=== PATIENT | male | born 1930 | race Caucasian/White ===

== ENCOUNTER 2017-03-10 12:15 | Inpatient (IN) | payer MEDICARE, BC ==
[2017-03-10] VITALS (13 sets, daily range): BP systolic 105–154; BP diastolic 54–77; PULSE 49–68; RESP 16–30; TEMP 98–102.7; O2SAT 88–97
[~2017-03-10] VITALS: Ht 170.2 cm; Wt 81.0 kg
[~2017-03-10 12:15] MED LIST: ALBU17I INH; CARB OP; CART180C4 PO; CENTTAB9 PO; COUM5TAB PO; LEVA500T33 PO; LISI-591 PO; PRED10PA PO; ROSU10 PO; TIMO0.5S29 OP; TRAV0.00 BOTH EYES
[2017-03-10 12:42] LABS: AUTOMATED NEUTROPHIL # 13.4 TH/MM3 (1.8-7.7); BASOPHIL % 0.1 % (0.0-2.0); HEMATOCRIT 44.1 % (39.0-51.0); LYMPH % 4.5 % (9.0-44.0); LYMPHOCYTE # 0.7 TH/MM3 (1.0-4.8); MEAN CELL VOLUME 94.9 FL (80.0-100.0); MEAN CORPUSCULAR HEMOGLOBIN 31.7 PG (27.0-34.0); MEAN CORPUSCULAR HGB CONC 33.4 % (32.0-36.0); MONO % 9.6 % (0.0-8.0); NEUT % 85.8 % (16.0-70.0); PLATELET COUNT 193 TH/MM3 (150-450); RED BLOOD COUNT 4.65 MIL/MM3 (4.50-5.90); RED CELL DISTRIBUTION WIDTH 13.7 % (11.6-17.2); WHITE BLOOD COUNT 15.6 TH/MM3 (4.0-11.0)
[2017-03-10 12:45] LABS: HEMO FLAGS AUTO DIFF
[2017-03-10 12:52] LABS: CHLORIDE 105 MEQ/L (98-107); POTASSIUM 4.5 MEQ/L (3.5-5.1); SODIUM (NA) 139 MEQ/L (136-145)
[2017-03-10 12:56] LABS: ANION GAP 8 MEQ/L (5-15); BLOOD UREA NITROGEN 20 MG/DL (7-18)
[2017-03-10 12:57] LABS: APTT (PATIENT) 34.1 SEC (24.3-30.1); INTERNATIONAL NORMALIZED RATIO 1.9 RATIO; PROTHROMBIN TIME - PATIENT 21.1 SEC (9.8-11.6)
[2017-03-10 12:59] LABS: ALT (GPT) 25 U/L (12-78); AST (GOT) 27 U/L (15-37); GLOMERULAR FILTRATION RATE 63 ML/MIN (>89)
[2017-03-10] MEDS ORDERED: ERGO2000 PO (13:00)
[2017-03-10] MEDS ORDERED: CENTCHW4 CHEW (13:00)
[2017-03-10] MEDS ORDERED: TRAV0.00 EACH EYE (13:00)
[2017-03-10] MEDS ORDERED: LISI-591 PO (13:00)
[2017-03-10] MEDS ORDERED: ALEN35TA24 PO (13:00)
[2017-03-10] MEDS ORDERED: CALC950T2 PO (13:00)
[2017-03-10] MEDS ORDERED: COUM5TAB PO (13:00)
[2017-03-10] MEDS ORDERED: TIMO0.5S30 EACH EYE (13:00)
[2017-03-10] MEDS ORDERED: DILT240C36 PO (13:00)
[2017-03-10] MEDS ORDERED: COMB0.2S RIGHT EYE (13:00)
[2017-03-10] MEDS ORDERED: LUTE20CA PO (13:00)
[2017-03-10] MEDS ORDERED: CART120C PO (13:00)
[2017-03-10] MEDS ORDERED: ROSU10 PO (13:00)
[2017-03-10] MEDS ORDERED: ZEAX5POW PO (13:00)
[2017-03-10 13:01] LABS: TOTAL BILIRUBIN ADULT 1.2 MG/DL (0.2-1.0)
[2017-03-10 13:02] LABS: ALKALINE PHOSPHATASE 47 U/L (45-117)
[2017-03-10 13:04] LABS: BANDS 16 % (0-6); NEUTROPHIL # MANUAL DIFF 13.4 TH/MM3 (1.8-7.7); PLATELET ESTIMATE SMEAR NORMAL (NORMAL); PLATELET MORPHOLOGY NORMAL (NORMAL); POLYS (SEG NEUTROPHILS) 70 % (16-70); SCAN/DIFF FINAL DIFF MANUAL; WBC DIFF SAMPLE 100
--- NOTE | 2017-03-10 13:13 | PD ---
HPI Chief Complaint: Respiratory Symptoms Time Seen by Provider: 12:24 Travel History International Travel<30 days: No Contact w/Intl Traveler<30days: No Traveled to known affect area: No History of Present Illness HPI 86-year-old male reports fever for about 1 day or so. He became short of breath today. His notes an occasional cough over the past day and a half or so. To me the patient denies orthopnea and dyspnea on exertion. He also denies chest pain and shortness of breath although he is conversationally dyspneic at the time of our interview. 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) Glaucoma: Yes Hepatitis: No Hiatal Hernia: No Hypertension: Yes Medical other: Yes (PROSTATE CA HISTORY, ) Psychiatric: No Respiratory: No Myocardial Infarction: No Radiation Therapy: Yes (OCT 1996 SEED IMPLANTS) Thyroid Disease: No Past Surgical History Cardiac Surgery: Yes (CARDIAC STENTS LAD) Coronary Stent: Yes (X 1 PLACED IN LAD) Eye Surgery: Yes (BILAT CATARACTS) Genitourinary Surgery: Yes (PROSTATE SURGERY FOR SEED IMPLANTS) Oral Surgery: Yes (TONSILLECTOMY) Tonsillectomy: Yes Other Surgery: Yes (R KNEE SCREWS/WIRE INSERTED) Social History Alcohol Use: Yes (4-5 BEERS/WINE DAILY) Tobacco Use: No Substance Use: No Allergies-Medications (Allergen,Severity, Reaction): Coded Allergies: Aspirin (Verified Allergy, Severe, RASH, 03/10/17) PT UNSURE IF ALLERGIC Naprosyn (Verified Allergy, Severe, RASK, 03/10/17) Reported Meds & Prescriptions Reported Meds & Active Scripts Active Reported Zeaxanthin (Zeaxanthin (Bulk)) 1 Pow Pow 25 Mg PO DAILY Lutein 20 Mg Cap 20 Mg PO DAILY Calcitrate (Calcium Citrate) 950 Mg Tab 1,250 Mg PO DAILY Vitamin D2 (Ergocalciferol) 2,000 Unit Tab 2,000 Units PO DAILY Centrum (Multiple Vitamins W/ Minerals) 1 Chew 1 Tab CHEW DAILY Alendronate (Alendronate Sodium) 35 Mg Tab 70 Mg PO Q7D Combigan Opth Drops (Brimonidine-Timolol Opth Drops) 0.2-0.5% Soln 1 Drop RIGHT EYE Q12HR Travatan Z Opth Drops (Travoprost) 0.004 % Soln 1 Drop EACH EYE HS Timolol Opth Drops 0.5 % Soln 1 Drop EACH EYE DAILY Cartia Xt (Diltiazem ER 24 HR) 120 Mg Caper 240 Mg PO DAILY Zestril (Lisinopril) 20 Mg Tab 20 Mg PO DAILY Crestor (Rosuvastatin Calcium) 10 Mg Tab 10 Mg PO DAILY Coumadin (Warfarin) 5 Mg Tab 5 Mg PO DAILY Review of Systems Except as stated in HPI: all other systems reviewed are Neg General / Constitutional: Positive: Fever, Chills Cardiovascular: No: Chest Pain or Discomfort, Palpitations Respiratory: No: Cough, Shortness of Breath Physical Exam Narrative GENERAL: Well-nourished or gallop 86-year-old male mild respiratory distress SKIN: Focused skin assessment warm/dry. HEAD: Atraumatic. Normocephalic. EYES: Pupils equal and round. No scleral icterus. No injection or drainage. ENT: No nasal bleeding or discharge. Mucous membranes pink and moist. NECK: Trachea midline. No JVD. CARDIOVASCULAR: Irregular. Between 50 and 60. RESPIRATORY: Tachypnea. Diminished lung sounds in the bases. GASTROINTESTINAL: Abdomen soft, non-tender, nondistended. Hepatic and splenic margins not palpable. MUSCULOSKELETAL: No obvious deformities. No clubbing. No cyanosis. No edema. NEUROLOGICAL: Awake and alert. No obvious cranial nerve deficits. Motor grossly within normal limits. Normal speech. PSYCHIATRIC: Appropriate mood and affect; insight and judgment normal. Data Data Last Documented VS Vital Signs Date Time Temp Pulse Resp B/P Pulse Ox O2 Delivery O2 Flow Rate FiO2 03/10/17 13:25 49 16 116/69 94 Nasal Cannula 2 03/10/17 12:45 98.5 Vital signs reviewed Orders Complete Blood Count With Diff (03/10/17 12:21) Comprehensive Metabolic Panel (03/10/17 12:21) Lactic Acid Sepsis Protocol (03/10/17 12:21) Blood Culture (03/10/17 12:21) Iv Access Insert/Monitor (03/10/17 12:21) Oxygen Administration (03/10/17 12:21) Oximetry (03/10/17 12:21) Act Partial Throm Time (Ptt) (03/10/17 12:21) Prothrombin Time / Inr (Pt) (03/10/17 12:21) B-Type Natriuretic Peptide (03/10/17 12:21) Chest, Single Ap (03/10/17 ) Electrocardiogram (03/10/17 ) Troponin I (03/10/17 12:33) Furosemide Inj (Lasix Inj) (03/10/17 13:15) Nitroglycerin 2% Oint (Nitroglycerin 2% (03/10/17 13:15) Ceftriaxone Inj (Rocephin Inj) (03/10/17 13:15) Azithromycin (Zithromax) (03/10/17 13:15) Admit Order (Ed Use Only) (03/10/17 13:54) Labs Laboratory Tests Test 03/10/17 12:25 White Blood Count 15.6 TH/MM3 Red Blood Count 4.65 MIL/MM3 Hemoglobin 14.8 GM/DL Hematocrit 44.1 % Mean Corpuscular Volume 94.9 FL Mean Corpuscular Hemoglobin 31.7 PG Mean Corpuscular Hemoglobin 33.4 % Concent Red Cell Distribution Width 13.7 % Platelet Count 193 TH/MM3 Mean Platelet Volume 8.1 FL Neutrophils (%) (Auto) 85.8 % Lymphocytes (%) (Auto) 4.5 % Monocytes (%) (Auto) 9.6 % Eosinophils (%) (Auto) 0.0 % Basophils (%) (Auto) 0.1 % Neutrophils # (Auto) 13.4 TH/MM3 Lymphocytes # (Auto) 0.7 TH/MM3 Monocytes # (Auto) 1.5 TH/MM3 Eosinophils # (Auto) 0.0 TH/MM3 Basophils # (Auto) 0.0 TH/MM3 CBC Comment AUTO DIFF Differential Total Cells 100 Counted Neutrophils % (Manual) 70 % Band Neutrophils % 16 % Lymphocytes % 4 % Monocytes % 10 % Neutrophils # (Manual) 13.4 TH/MM3 Differential Comment FINAL DIFF MANUAL Platelet Estimate NORMAL Platelet Morphology Comment NORMAL Red Cell Morphology Comment NORMAL Prothrombin Time 21.1 SEC Prothromb Time International 1.9 RATIO Ratio Activated Partial 34.1 SEC Thromboplast Time Sodium Level 139 MEQ/L Potassium Level 4.5 MEQ/L Chloride Level 105 MEQ/L Carbon Dioxide Level 26.0 MEQ/L Anion Gap 8 MEQ/L Blood Urea Nitrogen 20 MG/DL Creatinine 1.10 MG/DL Estimat Glomerular Filtration 63 ML/MIN Rate Random Glucose 126 MG/DL Lactic Acid Level 3.2 mmol/L Calcium Level 8.4 MG/DL Total Bilirubin 1.2 MG/DL Aspartate Amino Transf 27 U/L (AST/SGOT) Alanine Aminotransferase 25 U/L (ALT/SGPT) Alkaline Phosphatase 47 U/L Troponin I 0.16 NG/ML B-Type Natriuretic Peptide 1078 PG/ML Total Protein 6.8 GM/DL Albumin 3.2 GM/DL MDM Medical Decision Making Medical Screen Exam Complete: Yes Emergency Medical Condition: Yes Medical Record Reviewed: Yes Differential Diagnosis Pneumonia, CHF, coronary ischemia, anemia, renal failure, sepsis Narrative Course CBC & BMP Diagram 03/10/17 12:25 LFTs normal BNP 1078 Tn 0.16 LA 3.2 INR 1.9 EKG: rate 55, ST changes in precordial leads appears stable compared to 4 years prior CHF: lasix 40mg IV given, nitropaste applied PNA: Rocephin, Azithro, blood cultures O2 sat approx 90-95% on 2L NC d/w Dr Klein for [facility]. Diagnosis Primary Impression: CHF exacerbation Qualified Code: I50.9 - Acute on chronic congestive heart failure, unspecified congestive heart failure type Additional Impressions: Sepsis Qualified Code: A41.9 - Sepsis, due to unspecified organism PNA (pneumonia) Qualified Code: J18.9 - Pneumonia of both lower lobes due to infectious organism Admitting Information Admitting Physician Requests: Admit Dixon Johnson MD March 10, 2017 13:13
[2017-03-10] MEDS ORDERED: FUROSEMIDE 40 MG/4 ML VIAL IV PUSH ONE (13:15)
[2017-03-10] MEDS ORDERED: NITROGLYCERIN 2% OINT 1 GM PACKET TOP ONE (13:15)
[2017-03-10] MEDS ORDERED: AZITHROMYCIN 250 MG TAB PO ONE (13:15)
[2017-03-10] MEDS ORDERED: cefTRIAXone INJ 1,000 MG in SODIUM CHLORIDE 0.9% INJ 100 ML IV ONE (13:15)
--- NOTE | 2017-03-10 13:45 | RADHPO ---
EXAM DATE/TIME: 03/10/2017 13:29 [place] COMPARISON: No previous studies available for comparison. INDICATIONS : Shortness of breath. MEDICAL HISTORY : Cardiovascular disease. SURGICAL HISTORY : Carotid stent. ten years ago ENCOUNTER: Initial ACUITY: 1 day PAIN SCORE: 0/10 LOCATION: FINDINGS: Portable AP view of the chest demonstrates cardiac silhouette size is the upper limits for normal mo cification of the aorta. There are perihilar and lower lung zone interstitial and air space opacities . No pneumothorax or pleural effusion is seen. Bones and soft tissues demonstrate no acute finding. CONCLUSION: Perihilar and lower lungs interstitial opacities may represent pulmonary edema in the appropriate cli nical setting. Raphael Messina MD on March 10, 2017 at 13:42 Board Certified Radiologist. This report was verified electronically.
[2017-03-10] MEDS ORDERED: BISACODYL 10 MG SUPP RECTAL PRN (14:30)
[2017-03-10] MEDS ORDERED: AZITHROMYCIN INJ 500 MG in SODIUM CHLOR 0.9% 250 ML INJ 250 ML IV SCH (14:30)
[2017-03-10] MEDS ORDERED: SENNOSIDES 8.6 MG TAB PO PRN (14:30)
[2017-03-10] MEDS ORDERED: NALOXONE HCL 0.4 MG/ML AMP IV PRN (14:30)
[2017-03-10] MEDS ORDERED: LACTULOSE SYRUP 20 GM/30 ML CUP PO PRN (14:30)
[2017-03-10] MEDS ORDERED: ONDANSETRON HCL 4 MG/2 ML VIAL IVP PRN (14:30)
[2017-03-10] MEDS ORDERED: SODIUM CHLORIDE 0.9% FLUSH 10 ML FLUSH IV FLUSH PRN (14:30)
[2017-03-10] MEDS ORDERED: ACETAMINOPHEN 325 MG TAB PO PRN (14:30)
[2017-03-10] MEDS ORDERED: MAGNESIUM HYDROXIDE SUSP 30 ML CUP PO PRN (14:30)
[2017-03-10 14:31] LABS: LACTIC ACID GHOST NOT REPORTABLE
[2017-03-10] MEDS ORDERED: RESP: ALBUTEROL 2.5 MG/IPRATROPIUM 0.5 MG NEB (SCH) INH ONE (15:30)
[2017-03-10] MEDS: HEPARIN SODIUM - SQ 10,000 UNITS/ML VIAL SQ SCH (15:37)
[2017-03-10] MEDS ORDERED: ALENDRONATE 70 MG PO SCH (19:00)
[2017-03-10] MEDS ORDERED: ZEAXANTHIN PO SCH (19:00)
[2017-03-10] MEDS ORDERED: NON-FORMULARY DRUG (Lutein 20 MG) PO SCH (19:00)
--- NOTE | 2017-03-10 19:24 | MH ---
cc: RONALD TREJO MD DATE OF ADMISSION: 03/10/2017 CHIEF COMPLAINT: Cough, shortness of breath. HISTORY OF PRESENT ILLNESS: This is an 86-year-old male with past medical-surgical history significant for atrial fibrillation, left bundle branch block, history of prostate cancer status post seed implant, hyperlipidemia, coronary artery disease, hearing problem, hypertension, history of glaucoma, history of cardiac stent placement, bilateral cataract surgery, prostate surgery for seed implant, tonsillectomy, right knee surgery. He is a binge drinker and drinks four to five beers or wine a day. He came to [facility] complaining of shortness of breath for one day. The notes a cough over the past days. The patient denies any orthopnea or any dyspnea on exertion. Denies any chest pain. When he talks, he feels short of breath. At the time, other than that, he denies any nausea or vomiting, diarrhea, constipation. Denies any blood in the stool or black stool. Denies any burning on urination. He denies any hematochezia. Denies any neurological symptoms. Denies any other complaint. Other than that, nothing significant. PAST MEDICAL HISTORY / PAST SURGICAL HISTORY: Past medical-surgical history as dictated above. SOCIAL HISTORY: He drinks four to five beers or wine a day. He denies any tobacco abuse. He lives at home with his . He retired many years ago. FAMILY HISTORY: Nothing significant. ALLERGIES: 1. ASPIRIN. 2. NAPROXEN. MEDICATIONS: 1. Zeaxanthin 25 milligrams p.o. daily. 2. Lutein 20 milligrams p.o. daily. 3. Calcium citrate 1250 milligrams p.o. daily. 4. Vitamin D 2000 units p.o. daily. 5. Centrum multivitamin p.o. daily. 6. Alendronate 35 milligrams p.o. q. 7 days. 7. Combigan ophthalmic drops one drop right eye q. 12 hours. 8. Travatan ophthalmic drops 0.004% solution one drop each eye at bedtime. 9. Timolol ophthalmic drops 0.5% solution one drop each eye daily. 10. Cartia XT 40 milligrams p.o. daily. 11. Zestril 20 milligrams p.o. daily. 12. Crestor 10 milligrams p.o. daily. 13. Coumadin 5 milligrams p.o. daily. REVIEW OF SYSTEMS: Positive for mild shortness of breath. All other review of systems negative. PHYSICAL EXAMINATION: GENERAL: On physical exam, this is an 86-year-old male sitting on the bed not in acute distress. VITAL SIGNS: Temperature 99.3, heart rate 54, respirations 20, blood pressure 112/54, 02 saturation 94% on two liters nasal cannula. HEAD, EYES, EARS, NOSE, THROAT: Normocephalic and atraumatic. Extraocular muscles intact. Pupils equal, round and reactive to light and accommodation. Oral mucosa moist. NECK: The neck is supple. No visible thyromegaly or neck mass. Trachea is central. CARDIOVASCULAR: Regular rate and rhythm. RESPIRATORY: Clear to auscultation bilaterally. ABDOMEN: Abdomen soft and nontender. Bowel sounds audible. EXTREMITIES: No cyanosis or clubbing. Full range of motion of all extremities. NEUROLOGIC: Awake, alert and oriented times four. No focal deficits. SKIN: Warm and dry. PSYCHIATRIC: The patient is cooperative. Mood and affect are normal. LABORATORY DATA CBC totally unremarkable except for WBC count 15.6 high, neutrophils 85.8 high, lymphocytes 4.5 low, monos 9.6 high. Basic metabolic profile is totally unremarkable except for BUN 20 high, GFR 63 low, glucose 126 high, lactic acid level was 3.2 now it is 2.3, calcium 8.4 low, total protein 1.2 high. AST, ALT and alkaline phosphatase are normal. Troponin I is 0.16 high. Pro-BNP is 1078 high. Total protein 68, albumin 3.2. PT 21.1, INR 1.9, APTT 34.1. Blood cultures x2 done are negative so far. IMAGING STUDIES: Chest x-ray done shows perihilar and lower lung interstitial opacity may represent pulmonary edema in the appropriate clinical setting. ASSESSMENT AND PLAN: 1. This is an 86-year-old male who came to the emergency room diagnosed with shortness of breath secondary to CHF exacerbation, most likely acute on chronic systolic heart failure. The patient had a pro-BNP. I will start the patient on Lasix 50 milligrams IV daily. I will consult cardiology. Strict intakes and outputs and daily weights, fluid restriction to 1.5 liters a day, salt restriction to 2 grams a day, daily weights. Will monitor the patient's progress. 2. History of glaucoma. Continue home medication. 3. Vitamin D deficiency. Continue home medications. 4. History of hypertension. Continue medications. 5. History of hyperlipidemia. Continue with Crestor 10 milligrams p.o. daily. 6. History of atrial fibrillation. Continue with Coumadin. INR 1.9. We will monitor PT and INR daily. 7. History of osteopenia. Continue home medications. 8. DVT prophylaxis. Coumadin. 9. GI prophylaxis. Protonix 40 milligrams p.o. daily. We are going to manage the patient on a daily basis and make recommendations on a daily basis. Ronald Trejo MD EA/[facility] /6:51 PM /7:10 PM
[2017-03-10] MEDS: FUROSEMIDE 40 MG/4 ML VIAL IV PUSH SCH (19:32)
[2017-03-10] MEDS ORDERED: DO NOT ADM ANY ANTICOAGULANT DRUGS OTHER PRN (19:45)
[2017-03-10] MEDS ORDERED: NON-FORMULARY DRUG (Brimonidine-Timolol Opth Drops (Combigan Opth Drops) 1 DROP) RIGHT EYE SCH (21:00)
[2017-03-10] MEDS: LATANOPROST 0.005% OPHT SOLN 2.5 ML BTL EACH EYE SCH (21:00)
[2017-03-10] MEDS: RESP: ALBUTEROL 2.5 MG/IPRATROPIUM 0.5 MG NEB (SCH) NEB (21:12)
[2017-03-10] MEDS: SODIUM CHLORIDE 0.9% FLUSH 10 ML FLUSH IV FLUSH SCH (21:28)
[2017-03-10] MEDS: DOCUSATE SODIUM 50 MG/SENNA 8.6 MG TAB PO SCH (21:28)
[2017-03-10] MEDS: TIMOLOL MALEATE 0.5% OPHT SOLN 5 ML BTL RIGHT EYE SCH (22:00)
[2017-03-10] MEDS: BRIMONIDINE TARTRATE 0.2% OPHT SOLN 5 ML BTL RIGHT EYE SCH (22:00)
[2017-03-11] VITALS (20 sets, daily range): BP systolic 101–122; BP diastolic 46–62; PULSE 53–69; RESP 18–37; TEMP 97.9–99.4; O2SAT 93–98
[2017-03-11] MEDS: RESP: ALBUTEROL 2.5 MG/IPRATROPIUM 0.5 MG NEB (SCH) NEB ×4 (03:23→21:07)
[2017-03-11] MEDS: HEPARIN SODIUM - SQ 10,000 UNITS/ML VIAL SQ SCH (04:00)
[2017-03-11 04:51] LABS: AUTOMATED NEUTROPHIL # 8.3 TH/MM3 (1.8-7.7); BASOPHIL # 0.3 TH/MM3 (0-0.2); BASOPHIL % 2.6 % (0.0-2.0); EOSINOPHIL % 0.1 % (0.0-4.0); HEMATOCRIT 43.6 % (39.0-51.0); LYMPH % 7.4 % (9.0-44.0); LYMPHOCYTE # 0.8 TH/MM3 (1.0-4.8); MEAN CORPUSCULAR HGB CONC 33.7 % (32.0-36.0); MONO % 9.2 % (0.0-8.0); NEUT % 80.7 % (16.0-70.0); PLATELET COUNT 188 TH/MM3 (150-450); RED BLOOD COUNT 4.59 MIL/MM3 (4.50-5.90); RED CELL DISTRIBUTION WIDTH 13.4 % (11.6-17.2); WHITE BLOOD COUNT 10.3 TH/MM3 (4.0-11.0)
[2017-03-11 04:52] LABS: HEMO FLAGS DIFF FINAL
[2017-03-11 05:11] LABS: CHLORIDE 102 MEQ/L (98-107); POTASSIUM 3.9 MEQ/L (3.5-5.1); SODIUM (NA) 139 MEQ/L (136-145)
[2017-03-11 05:15] LABS: ANION GAP 7 MEQ/L (5-15)
[2017-03-11 05:16] LABS: BLOOD UREA NITROGEN 21 MG/DL (7-18)
[2017-03-11 05:18] LABS: ALT (GPT) 23 U/L (12-78)
[2017-03-11 05:19] LABS: AST (GOT) 34 U/L (15-37); GLOMERULAR FILTRATION RATE 86 ML/MIN (>89)
[2017-03-11 05:20] LABS: TOTAL BILIRUBIN ADULT 1.2 MG/DL (0.2-1.0)
[2017-03-11 05:21] LABS: ALKALINE PHOSPHATASE 77 U/L (45-117)
[2017-03-11 06:37] LABS: INTERNATIONAL NORMALIZED RATIO 1.4 RATIO; PROTHROMBIN TIME - PATIENT 15.4 SEC (9.8-11.6)
--- NOTE | 2017-03-11 08:25 | HHI.PR ---
Subjective History of Present Illness Patient Shortness of breath better d/w LOGISTICS TECHNICIANATIF Wilson no acute issue. Leukocytosis resolved Low INR Increase coumadin to 4 mg PO Daily. Patient will be transferred to [facility] for possible cardiac cath. Review of Systems Constitutional Constitutional: Fatigue, Weakness Pulmonary Respiratory: Shortness of Breath Vitals/Results Intake & Output 03/10/17 03/10/17 03/11/17 15:00 23:00 07:00 Intake Total 100 ml 500 ml 120 ml Output Total 150 ml 650 ml 300 ml Balance -50 ml -150 ml -180 ml Intake Oral 500 ml 120 ml IV Total 100 ml Output Urine Total 150 ml 650 ml 300 ml # Voids 2 1 Vital Signs Vital Signs Date Time Temp Pulse Resp B/P Pulse Ox O2 Delivery O2 Flow Rate FiO2 03/11/17 06:00 53 03/11/17 04:14 96 Nasal Cannula 3.00 03/11/17 04:00 56 03/11/17 03:00 62 35 122/62 96 03/11/17 02:00 65 03/11/17 01:07 98 35 03/11/17 00:00 67 03/10/17 23:00 98.0 64 29 113/59 97 03/10/17 22:05 97 35 03/10/17 22:00 98.4 03/10/17 22:00 65 03/10/17 20:00 66 03/10/17 20:00 102.7 66 28 120/66 96 03/10/17 19:15 95 40 03/10/17 17:53 54 24 112/54 94 Nasal Cannula 2 03/10/17 16:26 58 24 105/59 94 Nasal Cannula 2 03/10/17 15:40 68 28 120/59 94 Nasal Cannula 2 03/10/17 15:22 95 Nasal Cannula 2.00 03/10/17 14:37 99.3 66 30 126/59 93 Nasal Cannula 2 03/10/17 14:12 62 30 136/77 93 Nasal Cannula 2 03/10/17 13:25 49 16 116/69 94 Nasal Cannula 2 03/10/17 12:45 30 95 Nasal Cannula 2 03/10/17 12:45 98.5 58 30 154/74 88 03/10/17 12:45 95 Nasal Cannula 2 03/10/17 12:35 96 Nasal Cannula 2 CBC/BMP: 03/11/17 0435 03/11/17 0435 Lab Results Laboratory Tests Test 03/10/17 03/10/17 03/10/17 03/11/17 12:25 14:50 19:11 00:30 White Blood Count 15.6 TH/MM3 Red Blood Count 4.65 MIL/MM3 Hemoglobin 14.8 GM/DL Hematocrit 44.1 % Mean Corpuscular Volume 94.9 FL Mean Corpuscular Hemoglobin 31.7 PG Mean Corpuscular Hemoglobin 33.4 % Concent Red Cell Distribution Width 13.7 % Platelet Count 193 TH/MM3 Mean Platelet Volume 8.1 FL Neutrophils (%) (Auto) 85.8 % Lymphocytes (%) (Auto) 4.5 % Monocytes (%) (Auto) 9.6 % Eosinophils (%) (Auto) 0.0 % Basophils (%) (Auto) 0.1 % Neutrophils # (Auto) 13.4 TH/MM3 Lymphocytes # (Auto) 0.7 TH/MM3 Monocytes # (Auto) 1.5 TH/MM3 Eosinophils # (Auto) 0.0 TH/MM3 Basophils # (Auto) 0.0 TH/MM3 CBC Comment AUTO DIFF Differential Total Cells 100 Counted Neutrophils % (Manual) 70 % Band Neutrophils % 16 % Lymphocytes % 4 % Monocytes % 10 % Neutrophils # (Manual) 13.4 TH/MM3 Differential Comment FINAL DIFF MANUAL Platelet Estimate NORMAL Platelet Morphology Comment NORMAL Red Cell Morphology Comment NORMAL Prothrombin Time 21.1 SEC Prothromb Time International 1.9 RATIO Ratio Activated Partial 34.1 SEC Thromboplast Time Sodium Level 139 MEQ/L Potassium Level 4.5 MEQ/L Chloride Level 105 MEQ/L Carbon Dioxide Level 26.0 MEQ/L Anion Gap 8 MEQ/L Blood Urea Nitrogen 20 MG/DL Creatinine 1.10 MG/DL Estimat Glomerular Filtration 63 ML/MIN Rate Random Glucose 126 MG/DL Lactic Acid Level 3.2 mmol/L 2.3 mmol/L Calcium Level 8.4 MG/DL Total Bilirubin 1.2 MG/DL Aspartate Amino Transf 27 U/L (AST/SGOT) Alanine Aminotransferase 25 U/L (ALT/SGPT) Alkaline Phosphatase 47 U/L Troponin I 0.16 NG/ML 0.16 NG/ML 0.14 NG/ML B-Type Natriuretic Peptide 1078 PG/ML Total Protein 6.8 GM/DL Albumin 3.2 GM/DL Test 03/11/17 04:35 White Blood Count 10.3 TH/MM3 Red Blood Count 4.59 MIL/MM3 Hemoglobin 14.7 GM/DL Hematocrit 43.6 % Mean Corpuscular Volume 95.0 FL Mean Corpuscular Hemoglobin 32.0 PG Mean Corpuscular Hemoglobin 33.7 % Concent Red Cell Distribution Width 13.4 % Platelet Count 188 TH/MM3 Mean Platelet Volume 8.0 FL Neutrophils (%) (Auto) 80.7 % Lymphocytes (%) (Auto) 7.4 % Monocytes (%) (Auto) 9.2 % Eosinophils (%) (Auto) 0.1 % Basophils (%) (Auto) 2.6 % Neutrophils # (Auto) 8.3 TH/MM3 Lymphocytes # (Auto) 0.8 TH/MM3 Monocytes # (Auto) 0.9 TH/MM3 Eosinophils # (Auto) 0.0 TH/MM3 Basophils # (Auto) 0.3 TH/MM3 CBC Comment DIFF FINAL Differential Comment Prothrombin Time 15.4 SEC Prothromb Time International 1.4 RATIO Ratio Sodium Level 139 MEQ/L Potassium Level 3.9 MEQ/L Chloride Level 102 MEQ/L Carbon Dioxide Level 30.0 MEQ/L Anion Gap 7 MEQ/L Blood Urea Nitrogen 21 MG/DL Creatinine 0.84 MG/DL Estimat Glomerular Filtration 86 ML/MIN Rate Random Glucose 95 MG/DL Calcium Level 8.3 MG/DL Total Bilirubin 1.2 MG/DL Aspartate Amino Transf 34 U/L (AST/SGOT) Alanine Aminotransferase 23 U/L (ALT/SGPT) Alkaline Phosphatase 77 U/L Total Protein 6.6 GM/DL Albumin 3.0 GM/DL Microbiology Microbiology 03/10/17 Aerobic Blood Culture, Received Pending 03/10/17 Anaerobic Blood Culture, Received Pending 03/10/17 Aerobic Blood Culture, Received Pending 03/10/17 Anaerobic Blood Culture, Received Pending Physical Exam General General Appearance: Well Developed, Well Nourished, No Acute Distress, Comfortable Eyes Eye Exam: Pupils Equal, Pupils Reactive, Sclera White, Extraocular Movement Intact Throat Throat Exam: Oral Mucosa [place] & Moist, Oral Pharynx Normal Neck Neck Exam: Neck Supple, Trachea Midline Pulmonary Resp Exam: Decreased Bases, Diminished Breath Sounds Resp Remarks Bilateral mild crackle and wheezing. Gastrointestinal/Abdomen GI Exam: Soft, Non-Tender, Bowel Sounds Present Musculoskeletal MS Exam: Normal Tone Integumentary Skin Exam: Clear, Warm, Dry, Intact Neurologic Neuro Exam: Alert, Awake, Oriented, Speech Clear, Moving All Extremities, No Focal Deficits Psychiatric Psych Exam: Appropriate Responses VTE Prophylaxis VTE Prophylaxis Meds: Heparin PUD Prophylasis PUD Prophylaxis: Protonix Assessment/Plan Assessment/Plan ASSESSMENT AND PLAN: 1. This is an 86-year-old male who came to the emergency room diagnosed with shortness of breath secondary to CHF exacerbation, most likely acute on chronic systolic heart failure. The patient had a pro-BNP. patient on Lasix 40 milligrams IV daily. cardiology consulted.. Strict intakes and outputs and daily weights, fluid restriction to 1.5 liters a day, salt restriction to 2 grams a day, daily weights. Will monitor the patient's progress...improving possible cardiac cath soon. 2. History of glaucoma. Continue home medication. 3. Vitamin D deficiency. Continue home medications. 4. History of hypertension. Continue medications. 5. History of hyperlipidemia. Continue with Crestor 10 milligrams p.o. daily. 6. History of atrial fibrillation. Continue with Coumadin. INR 1.4. increase coumadin to 4 mg PO Daily.We will monitor PT and INR daily. 7. History of osteopenia. Continue home medications. 8. DVT prophylaxis. Coumadin. 9. GI prophylaxis. Protonix 40 milligrams p.o. daily. 10 Possible sepsis on admission on Antibiotic 11. High Troponin...cardiology on board cardiac cath soon. We are going to manage the patient on a daily basis and make recommendations on a daily basis. Discussed Condition with: Patient Ronald Tovar MD March 11, 2017 08:25
--- NOTE | 2017-03-11 08:30 | EKG ---
Date Performed: 03/10/2017 Time Performed: 12:20:12 PTAGE: 86 years EKG: Possible sinus bradycardia Left bundle branch block Abnormal ECG PREVIOUS TRACING : 10/29/2012 11.49 Compared to previous tracing, heart rate has slowed. DOCTOR: David Khan Interpretating Date/Time 03/11/2017 08:30:19
[2017-03-11] MEDS ORDERED: TIMOLOL MALEATE 0.5% OPHT SOLN 5 ML BTL EACH EYE SCH (09:00)
[2017-03-11] MEDS: BRIMONIDINE TARTRATE 0.2% OPHT SOLN 5 ML BTL RIGHT EYE SCH ×2 (09:46→21:00)
[2017-03-11] MEDS: SODIUM CHLORIDE 0.9% FLUSH 10 ML FLUSH IV FLUSH SCH ×2 (09:46→21:00)
[2017-03-11] MEDS: TIMOLOL MALEATE 0.5% OPHT SOLN 5 ML BTL RIGHT EYE SCH ×2 (09:46→21:00)
[2017-03-11] MEDS: CHOLECALCIFEROL (VIT D3) 1000 UNIT TAB PO SCH (09:47)
[2017-03-11] MEDS: FUROSEMIDE 40 MG/4 ML VIAL IV PUSH SCH (09:48)
[2017-03-11] MEDS: DILTIAZEM-CD 120 MG CAP ER PO SCH (09:50)
[2017-03-11] MEDS: LISINOPRIL 20 MG TAB PO SCH (09:50)
[2017-03-11] MEDS: DOCUSATE SODIUM 50 MG/SENNA 8.6 MG TAB PO SCH ×2 (09:50→21:40)
[2017-03-11] MEDS: ATORVASTATIN 20 MG TAB PO SCH (09:51)
[2017-03-11] MEDS: CALCIUM CARBONATE 1.25 GM (CA 500 MG) TAB PO SCH (09:51)
[2017-03-11] MEDS: MULTIVITAMINS/MINERALS THERAPEUTIC TAB PO SCH (09:51)
--- NOTE | 2017-03-11 12:53 | EC ---
Study Study Date:03/11/2017 STUDY CONCLUSIONS SUMMARY - Procedure narrative: Image quality was poor. The study was technically limited due to poor acoustic window availability. - Left ventricle: The cavity size was normal. Systolic function was probably normal. In limited views, the estimated ejection fraction was in the range of 50% to 55%, although difficult to determine with the technically difficult images. The study is not technically sufficient to allow evaluation of LV diastolic function. - Aortic valve: There was mild stenosis. Valve area: 1.5cm^2 (Vmax). If LV function is below 40, please consider prescribing an ACEI or ARB or document rationale for non-use. PROCEDURE DATA STUDY STATUS: Elective. Procedure: Transthoracic echocardiography. Image quality was poor. The study was technically limited due to poor acoustic window availability. Scanning was performed from the parasternal, apical, and subcostal acoustic windows. Study completion: The patient tolerated the procedure well. Transthoracic echocardiography. M-mode, complete 2D, complete spectral Doppler, and color Doppler. Height: Height: 67in. Weight: Weight: 165.7lb. Body mass index: BMI: 26kg/m^2. Body surface area: BSA: 1.87m^2. Patient status: Inpatient. CARDIAC ANATOMY LEFT VENTRICLE: The cavity size was normal. Systolic function was probably normal. In limited views, the estimated ejection fraction was in the range of 50% to 55%, although difficult to determine with the technically difficult images. Images were inadequate for LV wall motion assessment. The study is not technically sufficient to allow evaluation of LV diastolic function. AORTIC VALVE: Probably trileaflet; mildly thickened leaflets. Doppler: There was mild stenosis. No significant regurgitation. Valve area: 1.5cm^2 (Vmax). Indexed valve area: 0.8cm^2/m^2 (Vmax). Mean gradient: 13mm Hg (S). Peak gradient: 16mm Hg (S). MITRAL VALVE: The valve appears to be grossly normal. Doppler: There was no evidence for stenosis. No significant regurgitation. RIGHT VENTRICLE: Not well visualized. PULMONIC VALVE: Not visualized. Doppler: There was no evidence for stenosis. Trace regurgitation. TRICUSPID VALVE: Not well visualized. Doppler: There was no evidence for stenosis. Trace regurgitation. Patient weight: 165.7lb _Ejection fraction:_ 65-75% _Fractional shortening:_ 32% up to 5Kg 5-11.5Kg 11.6-22.9Kg 23-45Kg 45-57Kg Aortic Root 7-13 <17 13-22 17-27 17-27 LA diam 6-13 <23 24-38 33-47 37-40 RVID 10-17 7-15 7-15 7-18 8-17 LVIDd 12-22 <32 24-38 33-47 37-40 LVPW 2-4 3-6 5-7 6-8 7-8 IVS 2-4 3-6 5-7 6-8 7-8 BASIC MEASUREMENTS ADULT NORMAL Left ventricle LV internal dimension, ED, chordal *26.5 mm 43-52 level, PLAX LV internal dimension, ES, chordal *21.3 mm 23-38 level, PLAX Fractional shortening, chordal level, *20 % >29 PLAX LV posterior wall thickness, ED 10.4 mm IVS/LVPW ratio, ED 0.96 <1.3 Ventricular septum Septal thickness, ED 10 mm Aortic valve Leaflet separation 19 mm 15-26 BASIC MEASUREMENTS ADULT NORMAL Aortic valve Leaflet separation 19 mm 15-26 Aorta Root diameter, ED 24 mm 20-37 Left atrium Anterior-posterior dimension, ES *50 mm 19-40 Anterior-posterior dimension index, ES *2.67 cm/m^2 <2.2 LA/aortic root ratio 2.08 DOPPLER MEASUREMENTS ADULT NORMAL Main pulmonary artery Pressure, S 16 mm Hg =30 Aortic valve Peak velocity, S 197 cm/s Mean velocity, S 173 cm/s VTI, S 44.3 cm Mean gradient, S 13 mm Hg Peak gradient, S 16 mm Hg Valve area, Vmax 1.5 cm^2 Valve area index, Vmax 0.8 cm^2/m^2 Tricuspid valve Regurgitant peak velocity 181 cm/s Peak RV-RA gradient, S 13 mm Hg Maximal regurgitant velocity 181 cm/s Systemic veins Estimated CVP 10 mm Hg Right ventricle RV pressure, S 23 mm Hg <30 Pulmonic valve Peak velocity, S 130 cm/s LEGEND: Mean values are shown as u=mean value. Asterisk (*) woods values outside specified normal range. Prepared and signed by Matheus Johnson [id number]
[2017-03-11] MEDS: cefTRIAXone INJ 1,000 MG in SODIUM CHLORIDE 0.9% INJ 100 ML IV SCH (15:17)
[2017-03-11] MEDS: AZITHROMYCIN INJ 500 MG in SODIUM CHLOR 0.9% 250 ML INJ 250 ML IV SCH (15:17)
[2017-03-11] MEDS ORDERED: HEPARIN SODIUM - IV 10,000 UNITS/10 ML VIAL IV PRN ×2 (15:45)
[2017-03-11] MEDS ORDERED: HEPARIN 25,000 UNITS-D5W 250 ML - PREMIX IV SCH (15:45)
[2017-03-11] MEDS ORDERED: WARFARIN SOD 4 MG TAB PO SCH (16:00)
[2017-03-11] MEDS ORDERED: WARFARIN SOD 2.5 MG TAB PO SCH (16:00)
[2017-03-11 17:03] LABS: HEMATOCRIT 44.8 % (39.0-51.0); MEAN CELL VOLUME 96.5 FL (80.0-100.0); MEAN CORPUSCULAR HEMOGLOBIN 32.1 PG (27.0-34.0); MEAN CORPUSCULAR HGB CONC 33.2 % (32.0-36.0); PLATELET COUNT 171 TH/MM3 (150-450); RED BLOOD COUNT 4.64 MIL/MM3 (4.50-5.90); RED CELL DISTRIBUTION WIDTH 14.1 % (11.6-17.2); REVIEW FLAG FINAL; WHITE BLOOD COUNT 8.8 TH/MM3 (4.0-11.0)
--- NOTE | 2017-03-11 17:16 | MB ---
cc: LAURENCE CASON M.D. DATE OF CONSULTATION: 03/11/2017 REASON FOR CONSULTATION: Jeffrey Cassidy, who is a very pleasant 78-year-old gentleman with history coronary disease/cath probably at least 5 years ago showed 50% proximal LAD lesion. He has a known left bundle branch block, atrial fibrillation, he is on coumadin. He presents with chief complaint of shortness of breath. His B-type natriuretic peptide is over a 1000. He was initially admitted to [address] [place] [address] Intensive care unit transfer to [place]. He is on a non-rebreather mask currently. He does not appear to be in distress. Denies any distress. Denies chest pain, fevers, chills, cough, bleeding, pain, orthopnea or syncope. PAST MEDICAL HISTORY: 1. As per history of present illness. 2. His history of prostate cancer status post seed placement. 3. Glaucoma. 4. Tonsillectomy. 5. Right knee surgery. SOCIAL HISTORY Drinks four or five beers or wine daily. Denies tobacco use. ALLERGIES ASPIRIN NAPROSYN MEDICATIONS PRIOR TO ADMISSION 1. <<1:10>> 2. Calcitrate 3. Vitamin D 2 4. Centrum 5. Alondranate. 6. <<1:17>> 7. Travatan. 8. Timolol 9. Cardia 120 daily. 10. Zestril 11. Crestor 12. Coumadin. MEDICATIONS IN THE HOSPITE: 1. Coumadin. 2. Ceftriaxone. 3. Azithromycin. 4. Diltiazem 240 daily. 6. Lisinopril 20 daily. 7. Multivitamins. 8. Calcium carbonate. 9. Atorvastatin 20 mg daily. 10. Albuterol. 11. Adaptogen 12. Timolol 13. Lasix 40 mg IV daily. 14. Heparin 5000 subcutaneously q 12 hours. PHYSICAL EXAMINATION: VITAL SIGNS: Blood pressure 111/055, pulse 66, sats are 95% on 3 liters nasal cannula. Last recorded prior to transfer temperature 99.4. GENERAL: He is alert and alert and oriented x3 in mild distress NECK: Supple. No JVD or bruit. CARDIOVASCULAR SYSTEM: S1, S2, no murmurs, rubs or gallops. LUNGS: Notable for decreased air movement at the bases. ABDOMEN: The abdomen is soft, nontender, nondistended with positive bowel sounds. EXTREMITIES: 1+ lower extremity edema. RADIOLOGIC: Chest x-ray shows perihilar and lower lung interstitial opacities may represent pulmonary edema in the appropriate clinical setting. Echocardiogram was read yesterday, shows ejection fraction of 50-55%, mitral valve area 1.5 cm2. Mean aortic valve gradient 13 mmHg. His EKG shows intermittent atrial rhythm with left bundle-branch block, rate of 55 beats per minute. LABORATORY DATA White count 15.6, hemoglobin 14.8, hematocrit 44.1, platelet count 193, sodium 139, potassium 3.9, chloride 102, bicarb 30, BUN 21, creatinine .84, total bilirubin is 1.2. Troponin is 0.16, 0.16 and 0.14, lactic acid is 2.3. BNP is 1,078, INR is 1.4. FINAL DIAGNOSIS 1. NonSTEMI. 2. Coronary disease. 3. Decompensated congestive heart failure 4. Elevated total bilirubin 5. Lactic acidosis. 6. Elevated white count 7. Chronic atrial fibrillation. 8. Alcohol abuse. 9. Hypoxia 10. Respiratory failure. DISCUSSION The patient's LV function is preserved with mild aortic valve stenosis gradient, given his history of the proximal mid 50% LAD lesion. This is very suspicious for ischemic etiology to not only the troponin elevation but also the decompensated heart failure. Obviously the patient has advanced age, explained the cannot rule out ischemic etiology without left heart catheterization and actually recommend left heart catheterization. The patient is undecided, he wishes to discuss this with his . In the meanwhile I have instructed the nurse to hold his coumadin. Start aspirin 81 mg daily, heparin drip per ACS protocol and keep n.p.o. after midnight. I will placed him on the cath schedule tomorrow if the patient consents, we will proceed left heart catheterization and right heart catheterization. MD ROSALINO Lan/kimberly /2:22 PM /5:03 PM
[2017-03-11 17:17] LABS: APTT (PATIENT) 32.7 SEC (24.3-30.1); INTERNATIONAL NORMALIZED RATIO 1.2 RATIO; PROTHROMBIN TIME - PATIENT 13.3 SEC (9.8-11.6)
--- NOTE | 2017-03-11 19:26 | MB ---
cc: MAURICIO HILLIARD DATE OF CONSULTATION 03/11/[address] Ronald Tovar REASON FOR CONSULTATION Pulmonary management. HISTORY OF PRESENT ILLNESS Mr. Cassidy is a pleasant 86-year-old male who has a history of coronary artery disease, atrial fibrillation, history of CA of the prostate status post seed implant. The patient came to the hospital with worsening of his shortness of breath going on for about one week or so, has cough and congestion, did not have fever or chills. No night sweats. No chest pain. The patient was initially admitted at [facility]. He had a workup done. His WBC count 8.8, hemoglobin 14.9, hematocrit 44.8, MCV 96, platelet count 171. His INR is 1.2. His troponin 0.16. Sodium is 139, potassium 3.9, chloride 102, CO2 30, BUN 21, creatinine 0.84. His chest x-ray shows perihilar and lower lung interstitial infiltrate, may be edema or infection. The patient was seen by Dr. Keshawn Anguiano and he is transferred to [facility] for cardiac catheterization. PAST MEDICAL HISTORY 1. History of atrial fibrillation 2. CA of the prostate status post radiation seed implant 3. Coronary artery disease, 4. Glaucoma, 5. Tonsillectomy, 6. Knee surgery. MEDICATIONS He is currently taking. 1. Heparin drip. 2. Rocephin 1 gram a day 3. Zithromax 500 mg a day 4. Diltiazem 240 mg a day 5. Lisinopril 20 mg a day. 6. Lipitor 20 mg a day. 7. Albuterol/Atrovent nebulizer treatment 8. Alphagan and Timoptic eye drops. 9. Xalatan eye drops. 10. Lasix 40 mg a day. ALLERGIES ASPIRIN NEOSPORIN SOCIAL HISTORY He is for 59 years. He has no history of smoking. Drinks four to six drinks every night. He is retired. FAMILY HISTORY He has four children, one with a heart problem. REVIEW OF SYSTEMS Normally he is up around and active. Weight is stable. No known COPD. No seizure, stroke or epilepsy. PHYSICAL EXAMINATION GENERAL: This is a well-nourished male [id number] not in acute distress. VITAL SIGNS: Blood pressure 108/57, heart rate 59, respiration 18, temperature 97.9 HEENT: Pupils are equal and reactive to light. Oral mucosa, nasal mucosa normal. NECK: Supple. JVP not raised. CHEST: She has bilateral expiratory rhonchi. CARDIOVASCULAR: S1, S2 normal. ABDOMEN: Benign. EXTREMITIES: No edema. IMPRESSION 1. Perihilar lung infiltrate possible pulmonary edema or early pneumonia. 2. Bronchospasm. He has no history of smoking or known COPD. 3. Reactive airway disease. 4. Non-ST [place] 5. Atrial fibrillation. 6. Hypertension. 7. History of CA of the prostate. PLAN Discussed patient is scheduled for cardiac catheterization tomorrow. I will start him on IV Solu-Medrol. Continue aerosol treatment. Supplement his oxygen. Continue present antibiotic Rocephin and Zithromax. Further treatment will depend on the course in the hospital. Thank you, Dr. Ronald Tovar, for this consultation. MD ADRIAN Ames/ /6:53 PM /7:10 PM
[2017-03-11] MEDS: LATANOPROST 0.005% OPHT SOLN 2.5 ML BTL EACH EYE SCH (21:00)
[2017-03-11] MEDS: methylPREDNISolone SOD SUCC 40 MG/1 ML VIAL IV PUSH SCH (21:40)
[2017-03-12] VITALS (23 sets, daily range): BP systolic 109–131; BP diastolic 60–69; PULSE 56–70; RESP 16–18; TEMP 98–98.5; O2SAT 95–97
[2017-03-12 00:53] LABS: APTT (PATIENT) 50.7 SEC (24.3-30.1)
[2017-03-12] MEDS: RESP: ALBUTEROL 2.5 MG/IPRATROPIUM 0.5 MG NEB (SCH) NEB ×4 (04:07→21:18)
[2017-03-12] MEDS: methylPREDNISolone SOD SUCC 40 MG/1 ML VIAL IV PUSH SCH ×3 (06:05→17:43)
[2017-03-12 06:47] LABS: APTT (PATIENT) 56.2 SEC (24.3-30.1); INTERNATIONAL NORMALIZED RATIO 1.1 RATIO; PROTHROMBIN TIME - PATIENT 12.7 SEC (9.8-11.6)
[2017-03-12] MEDS: TIMOLOL MALEATE 0.5% OPHT SOLN 5 ML BTL RIGHT EYE SCH ×2 (09:00→21:00)
[2017-03-12] MEDS: BRIMONIDINE TARTRATE 0.2% OPHT SOLN 5 ML BTL RIGHT EYE SCH ×2 (09:00→21:00)
[2017-03-12] MEDS: ATORVASTATIN 20 MG TAB PO SCH (09:28)
[2017-03-12] MEDS: FUROSEMIDE 40 MG/4 ML VIAL IV PUSH SCH (09:28)
[2017-03-12] MEDS: LISINOPRIL 20 MG TAB PO SCH (09:28)
[2017-03-12] MEDS: CHOLECALCIFEROL (VIT D3) 1000 UNIT TAB PO SCH (09:28)
[2017-03-12] MEDS: DILTIAZEM-CD 120 MG CAP ER PO SCH (09:29)
[2017-03-12] MEDS: CALCIUM CARBONATE 1.25 GM (CA 500 MG) TAB PO SCH (09:29)
[2017-03-12] MEDS: SODIUM CHLORIDE 0.9% FLUSH 10 ML FLUSH IV FLUSH SCH ×2 (09:29→21:00)
[2017-03-12] MEDS: MULTIVITAMINS/MINERALS THERAPEUTIC TAB PO SCH (09:29)
[2017-03-12] MEDS: DOCUSATE SODIUM 50 MG/SENNA 8.6 MG TAB PO SCH ×2 (09:29→21:00)
--- NOTE | 2017-03-12 11:36 | HHI.PR ---
Subjective Remarks Resting in bed Alert oriented Afebrile Heparin drip infusing patient denies any chest pain or shortness of breath in room Objective Objective Results - Vital Signs Date Time Temp Pulse Resp B/P Pulse Ox O2 Delivery O2 Flow Rate FiO2 03/12/17 10:32 95 Nasal Cannula 3.00 03/12/17 05:07 60 03/12/17 04:00 61 03/12/17 03:00 58 03/12/17 03:00 98.0 63 18 112/62 95 03/12/17 03:00 95 Nasal Cannula 4.00 35 03/12/17 02:00 60 03/12/17 01:02 62 03/12/17 00:00 62 03/11/17 23:00 95 Nasal Cannula 4.00 03/11/17 23:00 98.2 64 20 101/50 95 03/11/17 23:00 58 03/11/17 22:00 58 03/11/17 21:07 96 Nasal Cannula 3.00 03/11/17 21:00 62 03/11/17 20:00 66 03/11/17 19:00 99.3 68 18 101/46 97 03/11/17 19:00 68 03/11/17 18:08 95 Nasal Cannula 3.00 03/11/17 18:00 62 03/11/17 17:23 60 03/11/17 16:02 61 03/11/17 15:51 97.9 59 20 108/57 95 03/11/17 15:51 63 03/11/17 12:00 69 03/11/17 12:00 99.4 66 29 111/55 95 I/O 03/11/17 03/11/17 03/11/17 03/12/17 03/12/17 03/12/17 07:00 15:00 23:00 07:00 15:00 23:00 Intake Total 120 ml 360 ml 590 ml 350 ml Output Total 300 ml 200 ml Balance -180 ml 360 ml 590 ml 150 ml Intake Oral 120 ml 360 ml 240 ml 240 ml IV Total 350 ml 110 ml Output Urine Total 300 ml 200 ml # Voids 2 # Bowel Movements 0 Result Diagram: 03/11/17 1615 03/11/17 9715 ROS General: Fatigue (easily), Other (10 point ROS done positives noted other systems negative or unremarkable) Cardiac: Chest Pain (controlled currently on heparin drip), Other (cardiac catheter is pending) Neuro/MS: Other (alert oriented) Physical Exam Physical Exam PHYSICAL EXAMINATION GENERAL: This is a well-developed, elderly male who appears to be in no acute distress. He is alert and awake, in room HEAD: Normocephalic Facial features appear symmetric. OROPHARYNGEAL: Oropharynx without erythema or edema. NECK: Supple. Trachea midline CARDIAC: Regular rhythm, regular rate, S1 and S2 are heard. Borderline bradycardic, 58-60 LUNGS: Mild diminished to auscultation bilaterally. Rhonchi or wheezing ABDOMEN: Soft, nontender, no organomegaly or masses. Bowel sounds active EXTREMITIES: No edema. Pulses intact NEUROLOGICAL: Patient mood and affect appropriate. No focal deficit SKIN:Warm and moist Objective Remarks I'm ready for this test to be done A/P Assessment and Plan CHF exacerbation, patient treated with IV Lasix, and diurese this. Cardiology consult for their expert opinion Positive troponins, probable non-STEMI, heparin drip, chest pain stabilized, for cardiac catheter today Acute kidney injury with some mild dehydration, patient has received IV diuresis. Coverage by mouth fluids and monitor labs Possible pneumonia, patient on IV Rocephin and azithromycin IV steroids, leukocytosis resolved with current treatment regimen History of glaucoma., Stable medical management History of Vitamin D deficiency. Medical management hypertension, controlled, monitor hyperlipidemia. Medical management with Crestor History of atrial fibrillation Coumadin therapy DVT prophylaxis. Coumadin. And heparin drip GI prophylaxis. Protonix 40 milligrams p.o. daily. Eleni Aguillon March 12, 2017 11:36
[2017-03-12] MEDS ORDERED: IOHEXOL 350 MG/ML 100 ML BTL (for Cath Lab) OTHER ONE (12:38)
[2017-03-12] MEDS ORDERED: HEPARIN-NS/PF INJ 500 ML ONE ×2 (12:45→13:41)
[2017-03-12] MEDS ORDERED: ADENOSINE STRESS TEST INJ 90 MG/30 ML VIAL ONE (13:30)
[2017-03-12] MEDS ORDERED: HEPARIN SODIUM - IV 10,000 UNITS/10 ML VIAL ONE (13:31)
[2017-03-12] MEDS ORDERED: SODIUM NITROPRUSSIDE 50 MG/2 ML VIAL ONE (13:43)
[2017-03-12] MEDS ORDERED: CLOPIDOGREL 300 MG TAB ONE (13:56)
[2017-03-12] MEDS: cefTRIAXone INJ 1,000 MG in SODIUM CHLORIDE 0.9% INJ 100 ML IV SCH (14:00)
--- NOTE | 2017-03-12 14:16 | CATHPROC ---
Patient Name: MANI GARCIA Study #: 1042-17 Initial MD: Keshawn Anguiano Date of : 1930 Study Date: 03/12/2017 Cardiac Catheterization Report 03/12/2017 2:15:28 PM Financial #: [id number] 1 of 14 Patient Name: MANI GARCIA Study #: 1042-17 Initial MD: Keshawn Anguiano Date of : 1930 Study Date: 03/12/2017 Entire Case Report Patient Information Patient Name MANI GARCIA Date of 1930 Age 86 years Financial # [id number] Gender M AlternateID Lab Number 3 Accession # Room Number Height (in) 67.0 Height (cm) 170.2 BSA 1.91 Weight (lbs) 174.9 Weight (kg) 79.5 Patient Address/Phone Number Home Address [facility] Home Phone Number [phone] [facility] [address] Study Information Study Number Scheduled Start Study Start 1042-17 03/12/2017 Mar 12 2017 12:42PM Referring Institution Admit Source Facility Department 1 Emergency department [facility] - Volunteer Services Manager Physician and Clinical Staff Initial Keshawn Alvarez Professor Of Art History Derek Costello,RN Professor Of Art History Jocelin Su,RN Recorder Yash Travis,(R) Scrub Werner Martinez RCIS(BS) Procedures Performed Procedure Location (Site) Vessel Name Coronary Angiograms LCA Left Coronary Coronary Angiograms RCA Right Coronary LV Gram-hand inj. LV LV Ventricle PTCA LAD Prox Left Coronary Wire insertion Fem Art (right) Femoral Art 03/12/2017 2:15:28 PM Financial #: [id number] 2 of 14 Patient Name: MANI GARCIA Study #: 1042-17 Initial MD: Keshawn Anguiano Date of : 1930 Study Date: 03/12/2017 Equipment Time Electronics Detail Draftsperson Description Size Mfg Part Number Used/Scraped CATHETER, FR5 SWAN NATALIE 12:54 SEYMOUR SU FR 5 [id number] *[id number] Used MONITOR TRANSDUCER, TRUWAVE [id number] 12:54 SEYMOUR SU * Used W/STOCKCOCK *[id number] TRANSDUCER, TRUWAVE [id number] 12:54 SEYMOUR SU * Used W/STOCKCOCK *[id number] 538-420 *4900909 538-422 *[id number] 538-421 *3668046 538-453S *4379945 670-056-00 *[id number] 49-145 13:23 MediStyleSeek WIRE, BENTSON .035 150CM 150CM Used *[id number] [id number] 12:54 MEDLINE INDUSTRIES PACK, CCL CUSTOM * Used *[id number] 12:54 MEDLINE PACER PEN, SKIN DUAL W/ RULER * Used *[id number] 13:51 MEDTRONIC BALLOON, 3.0 X 12MM EUPHORA 12MM Used *[id number] [id number] 13:54 [email or web address] MEDICAL 30 DINAH INDEFLATOR Used *[id number] PSI-4F- 12:55 [email or web address] MEDICAL SHEATH, FR4.5 PRELUDE 11CM FR 4.5 Used 035ACT PSI-6F- 13:33 [email or web address] MEDICAL SHEATH, FR6.5 PRELUDE 11CM FR 6.5 038ACT Used *[id number] 12:54 [email or web address] MEDICAL WIRE, 3MMJ .035 180CM 180CM Used *[id number] 12:54 NAMIC MANIFOLD, 2 PORT * Used *[id number] 12:54 NAMIC MANIFOLD, 4 PORT * Used *0460412 12:54 NYCOMED OMNIPAQUE, 350 MG, 150ML 150ML [id number] Used [id number] 12:54 GAINES MEDICAL BLANKET,WARM AIR CCL * Used *6544091 12:54 TERUMO MEDICAL SHEATH, FR4 TERUMO (10CM) FR 4 [id number] Used 13:33 VOLCANO PRIME WIRE, VERRATA 185CM 185CM 67110 *[id number] Used Equipment Model, Serial, Lot Number and Expiration Data Description Model Number Serial Number Lot Number Expiration Date PRIME WIRE, VERRATA 185CM [id number] 01-11-2020 SHEATH, FR4.5 PRELUDE 11CM [id number] 01-11-2020 SHEATH, FR6.5 PRELUDE 11CM [id number] 02-10-2020 WIRE, BENTSON .035 150CM [id number] 11-12-2019 03/12/2017 2:15:28 PM Financial #: [id number] 3 of 14 Patient Name: MANI GARCIA Study #: 1042-17 Initial MD: Keshawn Anguiano Date of : 1930 Study Date: 03/12/2017 Insurance Information Insurance Payor Medicare, Private Health Insurance Third Constitution Party Third Constitution Party Number MEDICARE A B MCRAB History: Current Medications Medication Dosage/Unit Route Frequency Last Date/Time Taken ASA HEPARIN History: Allergies Allergy Reaction Aspirin RASH Naprosyn RASK History: Risk Factors Family History of Hypertension Dyslipidemia Previous [place] Previous Heart Failure Premature CAD Yes Yes Yes No No Prior Valve Prior PCI Prior PCIDate Prior CABG Surgery No Yes 02/11/2012 No Cerebrovascular Peripheral Artery Chronic Lung On Dialysis Diabetes Disease Disease Disease No No No No No History: CV Disease Selection Items Known CAD History: Stress Tests Stress or Imaging Studies Performed No History: Other Disease Selection Items CAD HTN History: Other Current Smoker No Labs 03/12/2017 2:15:28 PM Financial #: [id number] 4 of 14 Patient Name: MANI GARCIA Study #: 1042-17 Initial MD: Keshawn Anguiano Date of : 1930 Study Date: 7 Hgb (g/dl) Hct (%) RBC (MIL/MM3) WBC (l/cumm) Platelets (thousands) 12.00-18.00 37.00-55.00 4.80-6.20 4.80-10.80 140.00-450.00 14.7 43.6 4.5 10.3 188 Glucose (mg/dl) BUN (mg/dl) Creatinine (mg/dl) BUN:Creatinine (1:x) 60.00-110.00 8.00-20.00 0.10-9.00 10.00-20.00 126 20 1.1 18.2 Na (meq/l) K (meq/l) Cl (meq/l) CO2 (mmol/L) Ca (mg/dl) 138.00-146.00 3.80-5.10 101.00-111.00 23.00-30.00 9.00-10.50 139 3.9 102 30 8.4 PT (sec) PTT (sec) INR (PTT:PT) 9.40-11.40 25.10-32.70 0.50-2.00 15.4 34.1 1.4 Troponin I (ng/ml) Troponin T (ng/ml) CPK-MB (ng/ML) 0.40-2.30 0.40-2.10 0.00-7.00 0.16 0.14 Not Drawn Medication Medication Total Dose (Bolus/Oral) Medication Total Dosage/Unit 1% XYLOCAINE 20 mL AGGRASTAT BOLUS 37.5 meq/kg HEPARIN 5600 units PLAVIX 600 mg Medications (Bolus/Oral) Medication Time Given Dosage/Unit Administered By Reason 1% XYLOCAINE 03/12/2017 1:13:20 PM 20 mL Keshawn Anguiano 20 mL 1% XYLOCAINE given in lab by Keshawn Anguiano in Right Groin via Subcutaneous. HEPARIN 03/12/2017 1:34:39 PM 5600 units Jocelin Su 5600 units HEPARIN given in lab by Jocelin Su RN in Right Antecubital via Peripheral IV. AGGRASTAT BOLUS 03/12/2017 2:00:15 PM 37.5 meq/kg Jocelin Su 37.5 meq/kg AGGRASTAT BOLUS given in lab by Jocelin Su RN via Peripheral IV. Amount given = 2 981.25 meq. PLAVIX 03/12/2017 2:04:58 PM 600 mg Jocelin Su 600 mg PLAVIX given in lab by Jocelin Su RN via Oral. 03/12/2017 2:15:28 PM Financial #: [id number] Patient Name: MANI GARCIA Study #: 1042-17 Initial MD: Keshawn Anguiano Date of : 1930 Study Date: 02/12 Medication (Drip) Medication Time Given Dosage/Unit Concentration/Unit Diluent (ml) Solution ADENOSINE DRIP 03/12/2017 1:41:41 PM 140 mcg/kg/min 90 mg 90 NaCl .9 140 mcg/kg/min ADENOSINE DRIP given in lab by Jocelin Su RN in Right Antecubital via Peripher al IV. Pump/Drip Flow = 667.8 ml/hr using NaCl .9 with a concentration of 90 mg in 90 ml. AGGRASTAT DRIP 03/12/2017 2:06:42 PM 0.142 mcg/kg/min 12.5 mg 250 NaCl .9 0.142 mcg/kg/min AGGRASTAT DRIP given in lab by Jocelin Su RN in Right Antecubital via Periph eral IV. Pump/Drip Flow = 13.5 ml/hr using NaCl .9 with a concentration of 12.5 mg in 250 ml. IV Solutions 03/12/2017 12:51:02 PM 0 mL (IV) 500 NaCl .9 Patient arrived on IV Solutions in Right Antecubital via Peripheral IV. Pump/Drip Flow = 20 ml/hr usi ng NaCl .9. NIPRIDE 03/12/2017 1:47:13 PM 200 mcg 200 mcg NIPRIDE given in lab by Keshawn Anguiano. Initial Case Assessment Cardiovascular HR Rhythm Chest Pain 62 sinus 0 Edema Present Skin color Skin None Normal Warm Dry Circulatory - Right Pulses Dorsalis Pedis Femoral 1 1 Scale (0,1,2,3,4,d) Circulatory - Left Pulses Dorsalis Pedis Femoral 1 1 Scale (0,1,2,3,4,d) Neurological State Oriented to time-place- Alert Moves all extremities person Respiration - General Respiration Rate SpO2 (%) O2 (lpm) (B/min) 26 96 2 03/12/2017 2:15:28 PM Financial #: [id number] 6 of Patient Name: MANI GARCIA Study #: 1042-17 Initial MD: Keshawn Anguiano Date of : 1930 Study Date: 03/12/2017 Final Case Assessment Cardiovascular HR Rhythm NIBP Chest Pain 59 sinus 125/74 0 Edema Present Skin color Skin None Normal Warm Dry Circulatory - Right Pulses Dorsalis Pedis Femoral 1 1 Scale (0,1,2,3,4,d) Circulatory - Left Pulses Dorsalis Pedis Femoral 1 1 Scale (0,1,2,3,4,d) Neurological State Oriented to time-place- Alert Moves all extremities person Respiration - General Respiration Rate SpO2 (%) O2 (lpm) (B/min) 22 96 0 03/12/2017 2:15:28 PM Financial #: [id number] Patient Name: MANI GARCIA Study #: 1042-17 Initial MD: Keshawn Anguiano Date of : 1930 Study Date: 03/12/2017 Vitals Summary Pain Time HR NIBP SpO2 Resp Temp EtCO2 Apnea Alicia Lanier Comment Level 12:46:46 65 141/73 96.0 26 10 0 2 12:51:47 60 126/66 95.0 27 10 0 2 12:56:44 63 123/65 95.0 18 10 0 2 13:01:43 63 125/63 95.0 23 13:06:44 61 124/70 95.0 25 10 0 2 13:11:45 62 120/68 95.0 27 10 0 2 13:16:44 59 119/66 91.0 24 13:21:45 61 111/59 94.0 12 10 0 2 13:26:42 61 118/65 94.0 13 10 0 2 13:31:45 60 124/67 93.0 21 10 0 2 13:37:27 60 113/65 96.0 17 10 0 2 13:41:45 60 122/63 95.0 26 10 0 2 13:46:48 61 126/65 95.0 18 10 0 2 13:51:51 60 123/57 94.0 22 10 0 2 13:56:48 62 125/74 96.0 38 10 0 2 14:01:51 60 129/64 93.0 21 10 0 2 14:06:51 61 124/70 93.0 19 10 0 2 14:11:50 132/64 96.0 10 0 2 03/12/2017 2:15:28 PM Financial #: [id number] Patient Name: MANI GARCIA Study #: 1042-17 Initial MD: Keshawn Anguiano Date of : 1930 Study Date: 03/12/2017 Alicia Score Summary Time Activity Resp Circ LOC Color Total Score 12:46:46 2 2 2 2 2 10 12:51:47 2 2 2 2 2 10 12:56:44 2 2 2 2 2 10 13:06:44 2 2 2 2 2 10 13:11:45 2 2 2 2 2 10 13:21:45 2 2 2 2 2 10 13:26:42 2 2 2 2 2 10 13:31:45 2 2 2 2 2 10 13:37:27 2 2 2 2 2 10 13:41:45 2 2 2 2 2 10 13:46:48 2 2 2 2 2 10 13:51:51 2 2 2 2 2 10 13:56:48 2 2 2 2 2 10 14:01:51 2 2 2 2 2 10 14:06:51 2 2 2 2 2 10 14:11:50 2 2 2 2 2 10 Alicia Score Definition Table Activity - 0 Activity - 1 Activity - 2 No Movement to Command Weak Hand Grasp Lift Head, Good Hand Grasp Respiration - 0 Respiration - 1 Respiration - 2 Apneic or Obstructed Shallow Breath, Airway Adjunct Deep Breath, Cough Freely Circulation - 0 Circulation - 1 Circulation - 2 B/P > 50% Admission B/P B/P > 20-50% Admission B/P B/P Stable X3 Level of Consciousness - 0 Level of Consciousness - 1 Level of Consciousness - 2 Not Responding Arousable On Calling Awake and Aware Color - 0 Color- 1 Color - 2 Cyanotic Lips, Nailbed, Skin Pale, Dusky Pace Or Normal Chronological Log Time Study Chronological Log 12:38:41 Patient arrived via Bed. 12:43:47 Patient Name, D.O.B, / Armband Verified By R.N. 12:43:47 Consent signed by the physician and the patient and verified by the Volunteer Services Manager staff. 12:43:48 Pre-op and post- op instructions given; patient acknowledges understanding of instruction s. 12:43:49 Verbal Stimulation=2 Physical Stimulation=2 Airway=2 Respiration=2 TOTAL=8. (0=absent, 1= limited, 2=present) 03/12/2017 2:15:28 PM Financial #: [id number] Patient Name: MANI GARCIA Study #: 1042-17 Initial MD: Keshawn Anguiano Date of : 1930 Study Date: 03/12/2017 Vitals capture started with the following parameters, Patient=Adult, Interval=5 min, Initial Pr uphpro=880 mmHg, 12:46:07 Deflation Rate=5 mmHg 12:46:46 HR=65 bpm, YYVH=771/73 mmhg, SpO2=96.0 %, Resp=26 B/min, Pain=0, Alicia=10, Lanier=2 12:50:26 Presedation assessment performed by Volunteer Services Manager RN. 12:50:37 Patient has been NPO for More than 6Hrs. 12:50:38 Skin Breakdown- none per patient. 12:50:46 Patient Warmer Placed on the Table. 12:50:49 Johanna Prominences Protected 12:50:50 A # ~SIZE~ IV was noted in the Antecubital (right). Grade = ~GRADE~ 12:51:02 Patient arrived on IV Solutions in Right Antecubital via Peripheral IV. Pump/Drip Flow = 20 ml/hr using NaCl .9. 12:51:25 History and physical on the chart or being dictated. Assessment: Initial Case, HR=62 BPM, Rhythm=sinus, Chest Pain=0, Edema=None, Color=Normal, Skin = Warm, Dry Right Pulses: Adarsh Ped=1, Femoral=1 12:51:26 Left Pulses: Adarsh Ped=1, Femoral=1 Neurological: State=Alert, Ox3, PRIDE Respiration: Resp=26 B/min, SpO2=96 %, O2=2 lpm 12:51:47 HR=60 bpm, LWNF=227/66 mmhg, SpO2=95.0 %, Resp=27 B/min, Pain=0, Alicia=10, Lanier=2 12:56:44 HR=63 bpm, WJHD=238/65 mmhg, SpO2=95.0 %, Resp=18 B/min, Pain=0, Alicia=10, Lanier=2 13:01:43 HR=63 bpm, GNGS=256/63 mmhg, SpO2=95.0 %, Resp=23 B/min 13:05:27 Reference ECG taken 13:05:33 Right groin prepped with 2% chlorhexidine, and with a 3 min. waiting time. 13:05:39 MD arrived. 13:06:25 Pressure channel 1 zeroed. 13:06:44 HR=61 bpm, FIGP=363/70 mmhg, SpO2=95.0 %, Resp=25 B/min, Pain=0, Alicia=10, Lanier=2 13:11:45 HR=62 bpm, CFQG=666/68 mmhg, SpO2=95.0 %, Resp=27 B/min, Pain=0, Alicia=10, Lanier=2 Time Out. Correct patient, correct procedure,correct physician, power injector not loaded with contrast with surgical 13:12:47 team present. Time Out Concurred by MD, individual staff in procedure 13:13:16 Case Start 13:13:20 20 mL 1% XYLOCAINE given in lab by Keshawn Anguiano in Right Groin via Subcutaneous. 13:14:45 Access site was Right Femoral Artery. 13:16:36 Activated Clotting Time Drawn 13:16:44 HR=59 bpm, NMUJ=624/66 mmhg, SpO2=91.0 %, Resp=24 B/min 13:16:48 Access site was Right Femoral Vein. 13:17:00 A CATHETER, FR5 SWAN NATALIE MONITOR FR 5 was inserted via Fem Vein (right) Recorded Pressure: MPA, HR=62, Condition=Condition 1 13:18:03 (Main Pulmonary Artery) MPA 13:18:15 Saturation: Site=FA (Femoral Artery) , O2=94.6 %, Hgb=14.7 gm/dl, Condition=Condition 1. Us ed in calculation. Recorded Pressure: RV, HR=62, Condition=Condition 1 13:18:58 (Right Ventricle) RV 4416 Recorded Pressure: RA, HR=62, Condition=Condition 1 13:19:19 (Right Atrium) RA 13:19:58 [place] Natalie Catheter Removed 03/12/2017 2:15:28 PM Financial #: [id number] Patient Name: MANI GARCIA Study #: 1042-17 Initial MD: Keshawn Anguiano Date of : 1930 Study Date: 03/12/2017 13:20:06 Saturation: Site=PA (Pulmonary Artery) , O2=75 %, Hgb=14.7 gm/dl, Condition=Condition 1. Us ed in calculation. 13:20:24 Saturation: Site=RA (Right Atrium) , O2=77.9 %, Hgb=14.7 gm/dl, Condition=Condition 1. Used in calculation. A JR 4.0 INFINITI CATHETER FR 4 was advanced over a wire. OMNIPAQUE, 350 MG, 150ML 150ML was us ed for 13:20:42 injections. 13:21:45 HR=61 bpm, HKNC=762/59 mmhg, SpO2=94.0 %, Resp=12 B/min, Pain=0, Alicia=10, Lanier=2 13:22:44 ACT (Normal Range 90-180) = 148 13:23:39 Wire removed 13:23:40 A WIRE, BENTSON .035 150CM 150CM was inserted via Fem Art (right). 13:24:52 The RCA was injected and visualized at various angles. OMNIPAQUE, 350 MG, 150ML 150ML used . Recorded Pressure: Ao, HR=57, Condition=Condition 1 13:25:00 (Aorta) Ao 116/49/76 13:25:30 Catheter was removed A JL 4.0 INFINITI CATHETER FR 4 was advanced over a wire. OMNIPAQUE, 350 MG, 150ML 150ML was us ed for 13:26:17 injections. 13:26:22 Catheter was removed 13:26:42 HR=61 bpm, BVYO=643/65 mmhg, SpO2=94.0 %, Resp=13 B/min, Pain=0, Alicia=10, Lanier=2 A JL 5.0 INFINITI CATHETER FR 4 was advanced over a wire. OMNIPAQUE, 350 MG, 150ML 150ML was us ed for 13:26:56 injections. 13:27:48 The LCA was injected and visualized at various angles. OMNIPAQUE, 350 MG, 150ML 150ML used . 13:29:57 Catheter was removed A CATHETER, FR5 SWAN NATALIE MONITOR FR 5 was advanced over a wire. OMNIPAQUE, 350 MG, 150ML 150ML was 13:30:51 used for injections. A PIGTAIL ANG. INFINITI CATHETER FR 4 was advanced over a wire. OMNIPAQUE, 350 MG, 150ML 150ML was used 13:31:44 for injections. 13:31:45 HR=60 bpm, IUWE=722/67 mmhg, SpO2=93.0 %, Resp=21 B/min, Pain=0, Alicia=10, Lanier=2 Recorded Pressure: LV, HR=61, Condition=Condition 1 13:32:26 (Left Ventricle) LV 130/11/30 13:32:30 The LV was manually injected with 8 cc's and visualized. OMNIPAQUE, 350 MG, 150ML 150ML use d. Recorded Pressure: LV, Ao, HR=62, Condition=Condition 1 13:32:42 (Left Ventricle) LV 131/14/31, (Aorta) Ao 121/40/79 13:33:30 Catheter was removed A SHEATH, FR6.5 PRELUDE 11CM FR 6.5 was exchanged in the Fem Art (right). This was necessary in order to 13:33:58 accomodate a larger catheter. 13:34:39 5600 units HEPARIN given in lab by Jocelin Su, ATIF in Right Antecubital via Periphera l IV. A XB 4.0 GUIDE CATHETER FR 6 was advanced over a wire. OMNIPAQUE, 350 MG, 150ML 150ML was used for 13:36:44 injections. 13:37:27 HR=60 bpm, PKDO=092/65 mmhg, SpO2=96.0 %, Resp=17 B/min, Pain=0, Alicia=10, Lanier=2 13:39:14 A PRIME WIRE, VERRATA 185CM 185CM was inserted via Fem Art (right). 13:40:05 Activated Clotting Time Drawn 13:41:36 Flow Wire was was placed in the LAD Prox. The FFR measures 0.86 percent. The IFR measures ~I FR~ Percent. 140 mcg/kg/min ADENOSINE DRIP given in lab by Jocelin Su, ATIF in Right Antecubital via Pe ripheral IV. 13:41:41 Pump/Drip Flow = 667.8 ml/hr using NaCl .9 with a concentration of 90 mg in 90 ml. 13:41:45 HR=60 bpm, FFRV=428/63 mmhg, SpO2=95.0 %, Resp=26 B/min, Pain=0, Alicia=10, Lanier=2 13:46:48 HR=61 bpm, QEXT=559/65 mmhg, SpO2=95.0 %, Resp=18 B/min, Pain=0, Alicia=10, Lanier=2 03/12/2017 2:15:28 PM Financial #: [id number] Patient Name: MANI GARCIA Study #: [id number] Initial MD: Keshawn Anguiano Date of : 1930 Study Date: 03/12/2017 13:47:13 200 mcg NIPRIDE given in lab by Keshawn Anguiano. 13:48:40 Flow Wire was was placed in the LAD Prox. The FFR measures 0.81 percent. The IFR measures ~I FR~ Percent. 13:51:51 HR=60 bpm, NIFU=347/57 mmhg, SpO2=94.0 %, Resp=22 B/min, Pain=0, Alicia=10, Lanier=2 13:53:01 A BALLOON, 3.0 X 12MM EUPHORA 12MM was inserted over PRIME WIRE, VERRATA 185CM 185CM via th e LAD Prox. A BALLOON, 3.0 X 12MM EUPHORA 12MM over a PRIME WIRE, VERRATA 185CM 185CM in the LAD Prox was i nflated 13:53:53 using a 30 DINAH INDEFLATOR at 8 dinah for 10 sec. 13:54:38 Balloon Removed. 13:54:51 The LCA was injected and visualized at various angles. OMNIPAQUE, 350 MG, 150ML 150ML used . 13:55:28 Wire removed 13:55:30 Catheter was removed 13:55:40 Case End 13:56:48 HR=62 bpm, DJHT=215/74 mmhg, SpO2=96.0 %, Resp=38 B/min, Pain=0, Alicia=10, Lanier=2 Assessment: Final Case, HR=59 BPM, Rhythm=sinus, GOMM=789/74 mmhg, Chest Pain=0, Edema=None, Color=Normal, Skin = Warm, Dry Right Pulses: Adarsh Ped=1, Femoral=1 13:57:15 Left Pulses: Adarsh Ped=1, Femoral=1 Neurological: State=Alert, Ox3, PRIDE Respiration: Resp=22 B/min, SpO2=96 %, O2=0 lpm 13:57:53 Sterile dressing applied to site 13:57:56 No case complications noted. 13:58:03 A Left and Right Heart Cath was performed. 37.5 meq/kg AGGRASTAT BOLUS given in lab by Jocelin Su, RN via Peripheral IV. Amount giv en = 2981.25 14:00:15 meq. 14:00:18 Bedside Report will be given. 14:01:51 HR=60 bpm, BYQQ=829/64 mmhg, SpO2=93.0 %, Resp=21 B/min, Pain=0, Alicia=10, Lanier=2 14:04:58 600 mg PLAVIX given in lab by Jocelin Su, RN via Oral. 0.142 mcg/kg/min AGGRASTAT DRIP given in lab by Jocelin Su RN in Right Antecubital via Peripheral IV. 14:06:42 Pump/Drip Flow = 13.5 ml/hr using NaCl .9 with a concentration of 12.5 mg in 250 ml. 14:06:51 HR=61 bpm, PDXD=058/70 mmhg, SpO2=93.0 %, Resp=19 B/min, Pain=0, Alicia=10, Lanier=2 14:11:50 CUEQ=750/64 mmhg, SpO2=96.0 %, Pain=0, Alicia=10, Lanier=2 14:12:07 Vitals capture stopped. Recorded Pressures: Condition 1 Time Chamber Pressure Manual Override (*) 13:18:03 MPA 46/16/31 s/d/m 13:18:58 RV 44/2/16 s/bd/ed 13:19:19 RA 9/10/6 a/v/m 13:25:00 Ao 116/49/76 s/d/m 13:32:26 LV 130/11/30 s/bd/ed 13:32:42 LV 131/14/31 s/bd/ed 13:32:42 Ao 121/40/79 s/d/m Gradients/Valve Area(s): Condition 1 03/12/2017 2:15:28 PM Financial #: [id number] Patient Name: MANI GARCIA Study #: 1042-17 Initial MD: Keshawn Anguiano Date of : 1930 Study Date: 2016 Valve calculated Mean Gradient Sq Root Mean Gradient Valve Area Valve Area Index Aortic valve by Shaila 13.07 3.62 2.09 1.1 Aortic valve by Thermo 13.07 3.62 Tricuspid valve by Shaila 1.64 1.28 6.71 3.52 Tricuspid valve by Thermo 1.64 1.28 Oxygen Saturations: Condition 1 Oxygen Saturation Samples Saturation Location Saturation (%) Hgb Value (gm/dl) Used in calculation Time Documente d FA 94.6 14.7 Yes 1:18:15 PM PA 75.0 14.7 Yes 1:20:06 PM RA 77.9 14.7 Yes 1:20:24 PM Oxygen Saturation Group Summary Saturation Group Avg Sat (%) Used Hgb (gm/dl) Avg Content Total Samples Total Samp les Used Hgb from: PA 75.0 14.7 149.9 1 1 Lab Periph Art 94.6 14.7 189.1 1 1 Lab RA 77.9 14.7 155.7 1 1 Lab Normal Oxygen Saturation Range: RA, RV, PA, IVC, SVC = 65% - 80% AO, LA, PV, PCW, LV = 95% - 100% Peripheral Arterial = 94% - 97% Oxygen Values/Cardiac Output/Resistances: Condition 1 Oxygen Values O2 Consumption O2 Capacity 238.8 + 199.9 * = Manually Altered + = O2 Consumption is calculated using the formula 125 x BSA and should be considered a rough estimat e. Cardiac Heart Rate CO (L/min) CI (L/min)/m2) SWI (gm*m)/m2) SV (ml) SVI (m l/m2) Ouput Shaila 62 6.1 3.2 98.3 51.5 PVR (Dynes) PVR (Anton) SVR (Dynes) SVR (Anton) TSR (Dynes) TSR (W oods) Shaila 958.5 12 1037.3 13 SVR Index TSR Index TSR Index PVR Index (Dynes) PVR Index (Anton) SVR Index (Anton) (Dynes) (Dynes) (Anton) Shaila 1830.7 22.9 1981.2 24.8 * = Manually Altered Shaila Cardiac output = O2 Consumption/(AOsat (%) x Hgb x 1.36 x 10) - (MVsat (%) x Hgb x 1.36 x 10). End Study - Contrast Media Used In Study Contrast Total Opened (mL) Total Used (mL) Total Wasted (mL) Omnipaque 150 100 50 03/12/2017 2:15:28 PM Financial #: [id number] Patient Name: MANI GARCIA Study #: [id number] Initial MD: Keshawn Anguiano Date of : 1930 Study Date: 03/12/2017 End Study - Maximum Contrast Load Max Contrast Load (mL) 361.4 End Study - Radiation Exposure Fluoro Time (minutes) 7.2 End Study - Patient Disposition Complications Transferred To Interventional Outcome No Telemetry Bed successful 03/12/2017 2:15:28 PM Financial #: [id number]
[2017-03-12] MEDS ORDERED: TIROFIBAN INFUSION INJ 250 ML IV SCH (14:17)
[2017-03-12] MEDS ORDERED: CLOPIDOGREL 300 MG TAB PO ONE (14:30)
[2017-03-12] MEDS ORDERED: MISC INFORMATION XX ONE (14:30)
[2017-03-12] MEDS ORDERED: SODIUM CHLORIDE 0.9% FLUSH 10 ML FLUSH IV FLUSH PRN (14:30)
[2017-03-12] MEDS: AZITHROMYCIN INJ 500 MG in SODIUM CHLOR 0.9% 250 ML INJ 250 ML IV SCH (17:43)
[2017-03-12 19:24] LABS: INTERNATIONAL NORMALIZED RATIO 1.2 RATIO; PROTHROMBIN TIME - PATIENT 12.9 SEC (9.8-11.6)
--- NOTE | 2017-03-12 20:10 | HHI.PR ---
Subjective Remarks 86 YOWM with CAD,NSTMI,Lung infilt had cardiac cath today Breathing better Wheezing improved No CP Objective Vital Signs Vital Signs Date Time Temp Pulse Resp B/P Pulse Ox O2 Delivery O2 Flow Rate FiO2 03/12/17 17:00 66 03/12/17 16:00 98.5 70 18 129/69 96 03/12/17 16:00 68 03/12/17 16:00 96 Nasal Cannula 3.00 03/12/17 15:00 62 03/12/17 12:00 95 Nasal Cannula 3.00 03/12/17 12:00 98.0 62 18 109/65 95 03/12/17 12:00 62 03/12/17 11:00 64 03/12/17 10:32 95 Nasal Cannula 3.00 03/12/17 10:00 64 03/12/17 09:00 56 03/12/17 08:00 60 03/12/17 08:00 98.0 63 18 110/65 97 03/12/17 08:00 97 Nasal Cannula 3.00 03/12/17 07:00 58 03/12/17 05:07 60 03/12/17 04:00 61 03/12/17 03:00 58 03/12/17 03:00 98.0 63 18 112/62 95 03/12/17 03:00 95 Nasal Cannula 4.00 35 03/12/17 02:00 60 03/12/17 01:02 62 03/12/17 00:00 62 03/11/17 23:00 95 Nasal Cannula 4.00 03/11/17 23:00 98.2 64 20 101/50 95 03/11/17 23:00 58 03/11/17 22:00 58 03/11/17 21:07 96 Nasal Cannula 3.00 03/11/17 21:00 62 I/O 03/11/17 03/11/17 03/11/17 03/12/17 03/12/17 03/12/17 07:00 15:00 23:00 07:00 15:00 23:00 Intake Total 120 ml 360 ml 590 ml 350 ml 590 ml Output Total 300 ml 200 ml 861 ml Balance -180 ml 360 ml 590 ml 150 ml -271 ml Intake Oral 120 ml 360 ml 240 ml 240 ml 240 ml IV Total 350 ml 110 ml 350 ml Output Urine Total 300 ml 200 ml 860 ml Stool Total 1 ml # Voids 2 # Bowel Movements 0 Result Diagram: 03/11/17 1615 03/11/17 0435 Objective Remarks GENERAL: WBWN WM,NAD SKIN: Warm and dry. HEAD: Normocephalic. EYES: No scleral icterus. No injection or drainage. NECK: Supple, trachea midline. No JVD or lymphadenopathy. CARDIOVASCULAR: Regular rate and rhythm without murmurs, gallops, or rubs. RESPIRATORY: Breath sounds equal bilaterally. No accessory muscle use. GASTROINTESTINAL: Abdomen soft, non-tender, nondistended. MUSCULOSKELETAL: No cyanosis, or edema. BACK: Nontender without obvious deformity. No CVA tenderness. A/P Assessment and Plan Perihilar lung infilt pulm odema Bronchospasm improved AF HTN NSTMI, s/p cath PLAN: Aerosol nebs IV Solumedrol Cont Abx Wean 02 Chris Cai MD March 12, 2017 20:10
[2017-03-12] MEDS: LATANOPROST 0.005% OPHT SOLN 2.5 ML BTL EACH EYE SCH (21:00)
[2017-03-13] VITALS (14 sets, daily range): BP systolic 111–133; BP diastolic 64–79; PULSE 62–72; RESP 16–18; TEMP 97.4–98.4; O2SAT 90–98
[2017-03-13] MEDS: methylPREDNISolone SOD SUCC 40 MG/1 ML VIAL IV PUSH SCH ×3 (03:34→12:19)
[2017-03-13] MEDS: RESP: ALBUTEROL 2.5 MG/IPRATROPIUM 0.5 MG NEB (SCH) NEB ×2 (03:48→09:53)
[2017-03-13 06:48] LABS: INTERNATIONAL NORMALIZED RATIO 1.2 RATIO; PROTHROMBIN TIME - PATIENT 13.2 SEC (9.8-11.6)
[2017-03-13 06:53] LABS: AUTOMATED NEUTROPHIL # 8.1 TH/MM3 (1.8-7.7); BASOPHIL % 0.1 % (0.0-2.0); HEMATOCRIT 38.5 % (39.0-51.0); HEMO FLAGS DIFF FINAL; LYMPHOCYTE # 0.7 TH/MM3 (1.0-4.8); MEAN CELL VOLUME 94.5 FL (80.0-100.0); MEAN CORPUSCULAR HEMOGLOBIN 32.3 PG (27.0-34.0); MEAN CORPUSCULAR HGB CONC 34.2 % (32.0-36.0); MONO % 7.5 % (0.0-8.0); NEUT % 85.4 % (16.0-70.0); PLATELET COUNT 215 TH/MM3 (150-450); RED BLOOD COUNT 4.08 MIL/MM3 (4.50-5.90); RED CELL DISTRIBUTION WIDTH 13.8 % (11.6-17.2); WHITE BLOOD COUNT 9.4 TH/MM3 (4.0-11.0)
[2017-03-13 07:04] LABS: BICARBONATE 28.6 MEQ/L (21.0-32.0); POTASSIUM 3.5 MEQ/L (3.5-5.1)
[2017-03-13 07:07] LABS: HDL CHOLESTEROL 35.8 MG/DL (40.0-60.0)
--- NOTE | 2017-03-13 08:02 | EKG ---
Date Performed: 03/12/2017 Time Performed: 16:14:16 PTAGE: 86 years EKG: Undetermined rhythm, possible Sinus rhythm with prolonged 1st degree block Left axis deviation Left bundle branch block Possible inferior infar ct - age undetermined Abnormal ECG PREVIOUS TRACING : 03/10/2017 12.20 Compared to the previous tracing, possible change of rhythm but difficult to determine on previous EKG DOCTOR: Matheus Johnson Interpretating Date/Time 03/13/2017 08:02:07
--- NOTE | 2017-03-13 08:40 | MA ---
cc: LAURENCE CASON M.D. DATE 03/12/2017 PROCEDURE PERFORMED Right heart catheterization, left heart catheterization, left ventriculography, coronary angiography, FFR of the proximal mid LAD and PTCA of the proximal mid LAD. INDICATIONS Non-STEMI, congestive heart failure, coronary artery disease, [place] Cardiovascular Society class IV angina, anginal equivalent. [place] Heart Association class IV decompensated congestive heart failure, flash pulmonary edema, coronary artery disease. PROCEDURAL STATEMENT The patient was brought to the cardiac catheterization laboratory, prepped and draped in the usual sterile fashion. 10 cc of 1% lidocaine was used to locally anesthetize the right common femoral artery. A 4-Eritrean sheath was placed in the right common femoral artery. A 5-Eritrean sheath placed in the right common femoral vein. Right heart catheterization was performed first with the following findings, the pulmonary capillary wedge pressure was unobtainable due to high PA pressures and coiling of the balloon. A [facility] catheter in the right ventricle. PA pressure was 46/16-31 RV pressure 44/2-16 RA pressure 9/10-5 The cardiac output was 6.1 liters per minute. Cardiac index 3.2 liters per meter squared per minute. FCR 95 8.5 dynes FA sat on room air 94.6%. PA sat 75% RA sat 77% Left heart catheterization was then performed with a 4-Eritrean JR-4, angled pigtail catheter and JL-5 catheter with the following findings. I was not able to get into the left ventricle with a 4-Eritrean diagnostic JR-4, so we did an angiogram of the right coronary artery which showed no significant obstruction. The left main had no significant obstructive disease. The LAD had a proximal mid 60% stenosis at a bifurcation with a medium size diagonal vessel. This appeared to be in-stent stenosis. I cannot completely tell whether this is a heavily calcified lesion or there was a stent there. In the mid segment, there was approximately 30-40% stenoses. The LAD is a large transapical vessel supplying the inferoapical wall as well. The left circumflex vessel has no significant disease angiographically. The first obtuse marginal vessel has no significant disease angiographically. It is a small to medium sized vessel. I was able to get into the left ventricle with an 0.035 J-tipped wire and an angled pigtail catheter. LV pressure is 130/14-15. Ejection fraction 60%. No significant obstructive disease. The 6-Eritrean sheath exchanged for the 4-Eritrean sheath and initial ACT 138. 70 units per kilo of heparin was given, ACT 289. A 6-Eritrean XB 4.0 guide with a 0.014 [place] pressure wire was put into the left main proximal LAD. Introducers removed, guide catheter thoroughly flushed with 20 cc normal saline. Pressure waveforms were normalized, then the 0.014 volcano pressure wire was placed into the distal LAD. The initial FFR was 0.91. The patient was infused with 140 mcg/kg/minute of adenosine. FFR was 0.85. We then discontinued the adenosine. The FFR was then returned to baseline at 0.91. We then gave a 200 mcg intracoronary bolus of Nipride. FFR than went to 0.81. DISCUSSION The patient presented with flash pulmonary edema. He has normal LV function. No significant aortic stenosis by echo or heart catheterization and what looks like a 60% in-stent stenosis in the proximal mid LAD. I suspect this is highly suspicious of the etiology to the flash pulmonary edema and given that the FFR was 0.81, although it was not quite 0.80, I did think it was medically necessary to proceed with PCI of the proximal mid LAD. Therefore, we did a balloon angioplasty with a 30 x 12 compliant [place] balloon with one inflation at 8 atmospheres for 10 seconds. The stenosis went from 60% to 0% ALVARO-III flow. CONCLUSION 1. Non-STEMI/flash pulmonary edema. Swain Heart Association class IV anginal equivalent. [place] Cardiovascular Society class IV angina, culprit 60% in-stent stenosis of the proximal mid LAD. 2. Normal LV systolic function of 60%. 3. Moderate pulmonary hypertension by right heart catheterization, PA pressure of 46/16-31. 4. Successful PTCA of the proximal mid LAD in-stent stenosis from 60% a 0% with ALVARO-III flow. 5. Recommend Plavix 600 mg p.o. load then 75 mg daily. The patient has an ALLERGY TO ASPIRIN. He also has a history of atrial fibrillation. We will restart his Coumadin tomorrow and continue medical management for his coronary disease and cardiac risk factor modification. MD ROSALINO Lan/ZACKERY /2:06 PM /8:21 AM
[2017-03-13] MEDS ORDERED: CLOPIDOGREL 75 MG TAB PO SCH (09:00)
[2017-03-13] MEDS: BRIMONIDINE TARTRATE 0.2% OPHT SOLN 5 ML BTL RIGHT EYE SCH (09:00)
[2017-03-13] MEDS: TIMOLOL MALEATE 0.5% OPHT SOLN 5 ML BTL RIGHT EYE SCH (09:00)
[2017-03-13] MEDS: DOCUSATE SODIUM 50 MG/SENNA 8.6 MG TAB PO SCH (09:00)
[2017-03-13] MEDS: CHOLECALCIFEROL (VIT D3) 1000 UNIT TAB PO SCH (09:13)
[2017-03-13] MEDS: LISINOPRIL 20 MG TAB PO SCH (09:13)
[2017-03-13] MEDS: DILTIAZEM-CD 120 MG CAP ER PO SCH (09:13)
[2017-03-13] MEDS: ATORVASTATIN 20 MG TAB PO SCH (09:14)
[2017-03-13] MEDS: CALCIUM CARBONATE 1.25 GM (CA 500 MG) TAB PO SCH (09:14)
[2017-03-13] MEDS: FUROSEMIDE 40 MG/4 ML VIAL IV PUSH SCH (09:14)
[2017-03-13] MEDS: MULTIVITAMINS/MINERALS THERAPEUTIC TAB PO SCH (09:14)
[2017-03-13] MEDS: SODIUM CHLORIDE 0.9% FLUSH 10 ML FLUSH IV FLUSH SCH (09:14)
--- NOTE | 2017-03-13 11:24 | EKG ---
Date Performed: 03/13/2017 Time Performed: 05:08:04 PTAGE: 86 years EKG: Sinus rhythm with 1st degree A-V block Left axis deviation Left bundle branch block Abnormal ECG PREVIOUS TRACING : 03/12/2017 16.14 Compared to prior tracing no significant change DOCTOR: Matheus Johnson Interpretating Date/Time 03/13/2017 11:24:24
--- NOTE | 2017-03-13 12:42 | HHI.PR ---
Subjective Interval History awake alert and oriented laying in bed no complaints at bed side cleared by cardiology for discharge Review of Systems Constitutional Constitutional: Fatigue, Weakness Pulmonary Respiratory: Shortness of Breath Vitals/Results Intake & Output 03/12/17 03/12/17 03/13/17 15:00 23:00 07:00 Intake Total 590 ml 240 ml Output Total 861 ml 450 ml Balance -271 ml -210 ml Intake Oral 240 ml 240 ml IV Total 350 ml Output Urine Total 860 ml 450 ml Stool Total 1 ml 0 ml Vital Signs Vital Signs Date Time Temp Pulse Resp B/P Pulse Ox O2 Delivery O2 Flow Rate FiO2 03/13/17 11:46 98.4 68 18 129/70 92 03/13/17 10:00 70 03/13/17 09:54 98 03/13/17 09:00 68 03/13/17 08:30 70 03/13/17 08:30 98.3 70 18 123/64 98 03/13/17 08:00 67 03/13/17 08:00 96 Room Air 03/13/17 06:00 66 03/13/17 05:00 62 03/13/17 04:00 66 03/13/17 03:45 97.4 72 16 133/73 90 03/13/17 03:10 99 Nasal Cannula 3.00 03/13/17 03:00 68 03/13/17 02:00 111/79 03/13/17 02:00 66 03/13/17 01:00 66 03/13/17 00:00 68 03/12/17 23:05 98.2 68 16 131/62 95 03/12/17 23:00 63 03/12/17 22:00 62 03/12/17 21:18 96 Nasal Cannula 3.00 03/12/17 21:00 68 03/12/17 20:00 96 Nasal Cannula 3.00 03/12/17 20:00 64 03/12/17 20:00 98.0 70 16 112/60 96 03/12/17 19:00 68 03/12/17 17:00 66 03/12/17 16:00 98.5 70 18 129/69 96 03/12/17 16:00 68 03/12/17 16:00 96 Nasal Cannula 3.00 03/12/17 15:00 62 CBC/BMP: 03/13/17 0445 03/13/17 0445 Lab Results Laboratory Tests Test 03/12/17 03/13/17 18:32 04:45 Prothrombin Time 12.9 SEC 13.2 SEC Prothromb Time International 1.2 RATIO 1.2 RATIO Ratio White Blood Count 9.4 TH/MM3 Red Blood Count 4.08 MIL/MM3 Hemoglobin 13.2 GM/DL Hematocrit 38.5 % Mean Corpuscular Volume 94.5 FL Mean Corpuscular Hemoglobin 32.3 PG Mean Corpuscular Hemoglobin 34.2 % Concent Red Cell Distribution Width 13.8 % Platelet Count 215 TH/MM3 Mean Platelet Volume 7.9 FL Neutrophils (%) (Auto) 85.4 % Lymphocytes (%) (Auto) 7.0 % Monocytes (%) (Auto) 7.5 % Eosinophils (%) (Auto) 0.0 % Basophils (%) (Auto) 0.1 % Neutrophils # (Auto) 8.1 TH/MM3 Lymphocytes # (Auto) 0.7 TH/MM3 Monocytes # (Auto) 0.7 TH/MM3 Eosinophils # (Auto) 0.0 TH/MM3 Basophils # (Auto) 0.0 TH/MM3 CBC Comment DIFF FINAL Differential Comment Sodium Level 142 MEQ/L Potassium Level 3.5 MEQ/L Chloride Level 105 MEQ/L Carbon Dioxide Level 28.6 MEQ/L Anion Gap 8 MEQ/L Blood Urea Nitrogen 32 MG/DL Creatinine 0.63 MG/DL Estimat Glomerular Filtration 120 ML/MIN Rate Random Glucose 140 MG/DL Calcium Level 7.7 MG/DL Total Creatine Kinase 231 U/L Triglycerides Level 67 MG/DL Cholesterol Level 96 MG/DL LDL Cholesterol 47 MG/DL HDL Cholesterol 35.8 MG/DL Cholesterol/HDL Ratio 2.68 RATIO Physical Exam General General Appearance: Well Developed, Well Nourished, No Acute Distress, Comfortable Eyes Eye Exam: Pupils Equal, Pupils Reactive, Sclera White, Extraocular Movement Intact Throat Throat Exam: Oral Mucosa [place] & Moist, Oral Pharynx Normal Neck Neck Exam: Neck Supple, Trachea Midline Pulmonary Resp Exam: Decreased Bases, Diminished Breath Sounds Cardiology CV Exam: Regular, Normal Sinus Rhythm Gastrointestinal/Abdomen GI Exam: Soft, Non-Tender, Bowel Sounds Present Musculoskeletal MS Exam: Normal Tone Integumentary Skin Exam: Clear, Warm, Dry, Intact Neurologic Neuro Exam: Alert, Awake, Oriented, Speech Clear, Moving All Extremities, No Focal Deficits Psychiatric Psych Exam: Appropriate Responses VTE Prophylaxis VTE Prophylaxis Meds: Heparin PUD Prophylasis PUD Prophylaxis: Protonix Assessment/Plan Assessment/Plan ASSESSMENT AND PLAN: 1. This is an 86-year-old male who came to the emergency room diagnosed with shortness of breath secondary acute diastolic CHF, likley flash Pulm edema NSTEMI Appreciate Cardiology input s/p Cardiac cath 03/12, PTCA to LAD loaded with pLavix resume coumadin cleared by cardiology for discharge, with plan to follow up in clinic in 1 week cath site looks ok, no bleeding, no hematoma no diuretics at discharge no Aspirin sec to allergy Possible cOMMUNITY ACQUIRED pneumonia On reocephin and azithromycin switch to po ceftin 2. History of glaucoma. Continue home medication. 3. Vitamin D deficiency. Continue home medications. 4. History of hypertension. Continue medications. 5. History of hyperlipidemia. Continue with Crestor 10 milligrams p.o. daily. 6. History of atrial fibrillation. Continue with Coumadin. 7. History of osteopenia. Continue home medications. 8. DVT prophylaxis. Coumadin. 9. GI prophylaxis. Protonix 40 milligrams p.o. daily. 10 Possible sepsis on admission 11. High Troponin likely sec to NSTEMI discussed with patient, at bed side and nursing staff ok to d/c home discussed with Leyla Dao MD Mar 13, 2017 12:42
[2017-03-13] MEDS ORDERED: CEPH-460 PO (12:51)
[2017-03-13] MEDS ORDERED: COUM4TAB PO (12:51)
[2017-03-13] MEDS ORDERED: PLAV75TA29 PO (12:51)
--- NOTE | 2017-03-13 13:50 | PD.CARD.PN ---
Subjective Subjective Remarks feels better Objective Vital Signs / I&O Vital Signs Date Time Temp Pulse Resp B/P Pulse Ox O2 Delivery O2 Flow Rate FiO2 03/13/17 11:46 98.4 68 18 129/70 92 03/13/17 10:00 70 03/13/17 09:54 98 03/13/17 09:00 68 03/13/17 08:30 70 03/13/17 08:30 98.3 70 18 123/64 98 03/13/17 08:00 67 03/13/17 08:00 96 Room Air 03/13/17 06:00 66 03/13/17 05:00 62 03/13/17 04:00 66 03/13/17 03:45 97.4 72 16 133/73 90 03/13/17 03:10 99 Nasal Cannula 3.00 03/13/17 03:00 68 03/13/17 02:00 111/79 03/13/17 02:00 66 03/13/17 01:00 66 03/13/17 00:00 68 03/12/17 23:05 98.2 68 16 131/62 95 03/12/17 23:00 63 03/12/17 22:00 62 03/12/17 21:18 96 Nasal Cannula 3.00 03/12/17 21:00 68 03/12/17 20:00 96 Nasal Cannula 3.00 03/12/17 20:00 64 03/12/17 20:00 98.0 70 16 112/60 96 03/12/17 19:00 68 03/12/17 17:00 66 03/12/17 16:00 98.5 70 18 129/69 96 03/12/17 16:00 68 03/12/17 16:00 96 Nasal Cannula 3.00 03/12/17 15:00 62 I/O 03/12/17 03/12/17 03/12/17 03/13/17 03/13/17 03/13/17 07:00 15:00 23:00 07:00 15:00 23:00 Intake Total 350 ml 590 ml 240 ml Output Total 200 ml 861 ml 450 ml Balance 150 ml -271 ml -210 ml Intake Oral 240 ml 240 ml 240 ml IV Total 110 ml 350 ml Output Urine Total 200 ml 860 ml 450 ml Stool Total 1 ml 0 ml Laboratory GENERAL: SKIN: Warm and dry. HEAD: Normocephalic. EYES: No scleral icterus. No injection or drainage. NECK: Supple, trachea midline. No JVD or lymphadenopathy. CARDIOVASCULAR: Regular rate and rhythm without murmurs, gallops, or rubs. RESPIRATORY: Breath sounds equal bilaterally. No accessory muscle use. GASTROINTESTINAL: Abdomen soft, non-tender, nondistended. MUSCULOSKELETAL: No cyanosis, or edema. BACK: Nontender without obvious deformity. No CVA tenderness. Laboratory Tests Test 03/12/17 03/13/17 18:32 04:45 Prothrombin Time 12.9 SEC 13.2 SEC Prothromb Time International 1.2 RATIO 1.2 RATIO Ratio White Blood Count 9.4 TH/MM3 Red Blood Count 4.08 MIL/MM3 Hemoglobin 13.2 GM/DL Hematocrit 38.5 % Mean Corpuscular Volume 94.5 FL Mean Corpuscular Hemoglobin 32.3 PG Mean Corpuscular Hemoglobin 34.2 % Concent Red Cell Distribution Width 13.8 % Platelet Count 215 TH/MM3 Mean Platelet Volume 7.9 FL Neutrophils (%) (Auto) 85.4 % Lymphocytes (%) (Auto) 7.0 % Monocytes (%) (Auto) 7.5 % Eosinophils (%) (Auto) 0.0 % Basophils (%) (Auto) 0.1 % Neutrophils # (Auto) 8.1 TH/MM3 Lymphocytes # (Auto) 0.7 TH/MM3 Monocytes # (Auto) 0.7 TH/MM3 Eosinophils # (Auto) 0.0 TH/MM3 Basophils # (Auto) 0.0 TH/MM3 CBC Comment DIFF FINAL Differential Comment Sodium Level 142 MEQ/L Potassium Level 3.5 MEQ/L Chloride Level 105 MEQ/L Carbon Dioxide Level 28.6 MEQ/L Anion Gap 8 MEQ/L Blood Urea Nitrogen 32 MG/DL Creatinine 0.63 MG/DL Estimat Glomerular Filtration 120 ML/MIN Rate Random Glucose 140 MG/DL Calcium Level 7.7 MG/DL Total Creatine Kinase 231 U/L Triglycerides Level 67 MG/DL Cholesterol Level 96 MG/DL LDL Cholesterol 47 MG/DL HDL Cholesterol 35.8 MG/DL Cholesterol/HDL Ratio 2.68 RATIO Assessment and Plan Problem List: (1) CHF exacerbation (2) CAD (coronary artery disease) Assessment and Plan 1.) CAD - stable s/p ptca isr prox/mid lad, has hives with nsaids, therefore rec plavix 75 mg qd, restart coumadin now, d/w patient, his and nurse at bedside, f/u with me 03/19/17 Problem Qualifiers (1) CHF exacerbation: Qualified Code: I50.9 - Acute on chronic congestive heart failure, unspecified congestive heart failure type Keshawn Anguiano MD Mar 13, 2017 13:49
--- NOTE | 2017-03-13 17:58 | HHI.DS ---
Discharge Summary Admission Date March 10, 2017 at 13:54 Discharge Date: Mar 13, 2017 Admitting Diagnosis CHF Ex, Sepsis (PNA) Brief History This is an 86-year-old male with past medical-surgical history significant for atrial fibrillation, left bundle branch block, history of prostate cancer status post seed implant, hyperlipidemia, coronary artery disease, hearing problem, hypertension, history of glaucoma, history of cardiac stent placement, bilateral cataract surgery, prostate surgery for seed implant, tonsillectomy, right knee surgery. He was a binge drinker and drinks four to five beers or wine a day. He came to [facility] complaining of shortness of breath for one day. The notes a cough over the past days. CBC/BMP: 03/13/17 0445 03/13/17 0445 Significant Findings Laboratory Tests Test 03/10/17 03/11/17 03/11/17 03/11/17 19:11 00:30 04:35 16:15 Troponin I 0.16 NG/ML 0.14 NG/ML (0.02-0.05) (0.02-0.05) Neutrophils (%) (Auto) 80.7 % (16.0-70.0) Lymphocytes (%) (Auto) 7.4 % (9.0-44.0) Monocytes (%) (Auto) 9.2 % (0.0-8.0) Basophils (%) (Auto) 2.6 % (0.0-2.0) Neutrophils # (Auto) 8.3 TH/MM3 (1.8-7.7) Lymphocytes # (Auto) 0.8 TH/MM3 (1.0-4.8) Basophils # (Auto) 0.3 TH/MM3 (0-0.2) Prothrombin Time 15.4 SEC 13.3 SEC (9.8-11.6) (9.8-11.6) Blood Urea Nitrogen 21 MG/DL (7-18) Estimat Glomerular Filtration 86 ML/MIN (>89) Rate Calcium Level 8.3 MG/DL (8.5-10.1) Total Bilirubin 1.2 MG/DL (0.2-1.0) Albumin 3.0 GM/DL (3.4-5.0) Activated Partial 32.7 SEC Thromboplast Time (24.3-30.1) Test 03/11/17 03/12/17 03/12/17 03/13/17 23:58 05:10 18:32 04:45 Activated Partial 50.7 SEC 56.2 SEC Thromboplast Time (24.3-30.1) (24.3-30.1) Prothrombin Time 12.7 SEC 12.9 SEC 13.2 SEC (9.8-11.6) (9.8-11.6) (9.8-11.6) B-Type Natriuretic Peptide 172 PG/ML (0-100) Red Blood Count 4.08 MIL/MM3 (4.50-5.90) Hematocrit 38.5 % (39.0-51.0) Neutrophils (%) (Auto) 85.4 % (16.0-70.0) Lymphocytes (%) (Auto) 7.0 % (9.0-44.0) Neutrophils # (Auto) 8.1 TH/MM3 (1.8-7.7) Lymphocytes # (Auto) 0.7 TH/MM3 (1.0-4.8) Blood Urea Nitrogen 32 MG/DL (7-18) Random Glucose 140 MG/DL (74-106) Calcium Level 7.7 MG/DL (8.5-10.1) Cholesterol Level 96 MG/DL (120-200) HDL Cholesterol 35.8 MG/DL (40.0-60.0) Imaging Last Impressions Chest X-Ray 03/10/17 0000 Signed Impressions: Service Date/Time: Friday, March 10, 2017 13:29 - CONCLUSION: Perihilar and lower lungs interstitial opacities may represent pulmonary edema in the appropriate clinical setting. Raphael Messina MD PE at Discharge GENERAL: This was a well-developed, elderly male who appears to be in no acute distress. He was alert and awake, in room HEAD: Normocephalic Facial features appear symmetric. OROPHARYNGEAL: Oropharynx without erythema or edema. NECK: Supple. Trachea midline CARDIAC: Regular rhythm, regular rate, S1 and S2 are heard. Borderline bradycardic, 58-60 LUNGS: Mild diminished to auscultation bilaterally. Rhonchi or wheezing ABDOMEN: Soft, nontender, no organomegaly or masses. Bowel sounds active EXTREMITIES: No edema. Pulses intact NEUROLOGICAL: Patient mood and affect appropriate. No focal deficit SKIN:Warm and moist Objective Remarks I'm ready for this test to be done Hospital Course These are the diagnoses that were used to take care of this patient during hospital stay COPD exacerbation Acute kidney injury Possible pneumonia Strict glaucoma History of Vitamin D deficiency. hypertension, hyperlipidemia. History of atrial fibrillation Vital signs were monitored every 4 through hospital stay Labs were monitored and treated according to diagnosis is and plan a care CHF exacerbation, patient was treated with IV Lasix, and diuresesed Cardiology consult for their expert opinion Positive troponins, probable related to non-STEMI, she was placed on heparin drip, chest pain stabilized, for cardiac catheter today Acute kidney injury with some mild dehydration, patient has received IV diuresis. Coverage IV and by mouth and monitor labs Possible pneumonia, patient placed on IV Rocephin and azithromycin IV steroids, leukocytosis resolved with current treatment regimen History of glaucoma., Monitored and Stable medical management History of Vitamin D deficiency. Medical management with meds. hypertension, controlled, monitor, medical management hyperlipidemia. Medical management with Crestor History of atrial fibrillation Coumadin therapy DVT prophylaxis. used with Coumadin. And heparin drip GI prophylaxis. Protonix 40 milligrams p.o. daily. She was seen per Dr. molina on day of discharge and felt he was medical stable Appreciate Cardiology input for patients , felt patient was medically stable for discharge and follow up in the clinic in one week s/p Cardiac cath 03/12, PTCA to LAD. Patient was loaded with Plavix and Coumadin was resumed On discharge patient was given no diuretics l Possible cOMMUNITY ACQUIRED pneumonia, she treated during hospital stay with On reocephin and azithromycin switch to po ceftin at time of discharge. Pt Condition on Discharge: Stable Discharge Disposition: Discharge Home Discharge Instructions DIET: Follow Instructions for: Heart Healthy Diet Activities you can perform: Regular-No Restrictions Follow up Referrals: PCP Follow-up New Medications: Cephalexin (Keflex) 500 Mg Capsule 500 MG PO Q8H Infection #15 Ref 0 CAP Clopidogrel (Plavix) 75 Mg Tab 75 MG PO DAILY Blood Clot Prevention #30 TAB Warfarin (Coumadin) 4 Mg Tab 4 MG PO DAILY@16 Blood Clot Prevention Days 30 TAB Continued Medications: Alendronate (Alendronate) 35 Mg Tab 70 MG PO Q7D Osteoporosis Prophylaxis #4 Ref 0 TAB Brimonidine-Timolol Opth Drops (Combigan Opth Drops) 0.2-0.5% Soln 1 DROP RIGHT EYE Q12HR Glaucoma Ref 0 BOTTLE Calcium Citrate (Calcitrate) 950 Mg Tab 1250 MG PO DAILY Calcium Supplement Ref 0 TAB Diltiazem ER 24 HR (Cartia Xt) 120 Mg Caper 240 MG PO DAILY #30 Ref 0 CAP Ergocalciferol (Vitamin D2) 2,000 Unit Tab 2000 UNITS PO DAILY Nutritional Supplement Ref 0 TAB Lisinopril (Zestril) 20 Mg Tab 20 MG PO DAILY Blood Pressure Management #30 Ref 0 TAB Lutein (Lutein) 20 Mg Cap 20 MG PO DAILY Nutritional Supplement Ref 0 CAP Multiple Vitamins W/ Minerals (Centrum) 1 Chew 1 TAB CHEW DAILY Nutritional Supplement Ref 0 TAB Rosuvastatin (Crestor) 10 Mg Tab 10 MG PO DAILY Cholesterol Management #30 Ref 0 TAB Timolol Opth Drops (Timolol Opth Drops) 0.5 % Soln 1 DROP EACH EYE DAILY Glaucoma #1 Ref 0 BOTTLE Travoprost Opth Drops (Travatan Z Opth Drops) 0.004 % Soln 1 DROP EACH EYE HS Glaucoma #1 Ref 0 BOTTLE Zeaxanthin (Bulk) (Zeaxanthin) 1 Pow Pow 25 MG PO DAILY Discontinued Medications: Warfarin (Coumadin) 5 Mg Tab 2.5 MG PO DAILY EXCEPT SUN Blood Clot Prevention #30 Ref 0 TAB Eleni Aguillon Mar 13, 2017 17:58
== END 2017-03-13 14:33 | disposition home or self-care (01) | DRG 250 ==
LOC: PHED 12:15 → PHEDA 13:54 → PHEDH 17:44 → PHICU 18:35 → HCIS 03-11 14:19
PROVIDERS: ADMIT Family Medicine; ATTEND Family Medicine
PROC: B2111ZZ Fluoroscopy of Multiple Coronary Arteries using Low Osmolar Contrast (ICD-10-PCS; 2017-03-12)
PROC: 4A033BC Measurement of Arterial Pressure, Coronary, Percutaneous Approach (ICD-10-PCS; 2017-03-12)
PROC: 4A023N8 Measurement of Cardiac Sampling and Pressure, Bilateral, Percutaneous Approach (ICD-10-PCS; 2017-03-12)
PROC: B2151ZZ Fluoroscopy of Left Heart using Low Osmolar Contrast (ICD-10-PCS; 2017-03-12)
PROC: 02703ZZ Dilation of Coronary Artery, One Artery, Percutaneous Approach (ICD-10-PCS; principal; 2017-03-12 12:15)
DX: I21.4 Non-ST elevation (NSTEMI) myocardial infarction (principal); J96.91 Respiratory failure, unspecified with hypoxia; J18.9 Pneumonia, unspecified organism; N17.9 Acute kidney failure, unspecified; I50.33 Acute on chronic diastolic (congestive) heart failure; E87.2 Acidosis; I11.0 Hypertensive heart disease with heart failure; I27.2 Other secondary pulmonary hypertension; T82.858A Stenosis of other vascular prosthetic devices, implants and grafts, initial encounter; E55.9 Vitamin D deficiency, unspecified; E78.5 Hyperlipidemia, unspecified; I25.118 Atherosclerotic heart disease of native coronary artery with other forms of angina pectoris; I44.7 Left bundle-branch block, unspecified; I48.2 Chronic atrial fibrillation; I35.0 Nonrheumatic aortic (valve) stenosis; J45.909 Unspecified asthma, uncomplicated; E86.0 Dehydration; H40.9 Unspecified glaucoma; H91.90 Unspecified hearing loss, unspecified ear; M85.80 Other specified disorders of bone density and structure, unspecified site; F10.10 Alcohol abuse, uncomplicated; Y90.9 Presence of alcohol in blood, level not specified; Z79.01 Long term (current) use of anticoagulants; Z85.46 Personal history of malignant neoplasm of prostate; Z88.1 Allergy status to other antibiotic agents; Z88.6 Allergy status to analgesic agent; Z92.3 Personal history of irradiation
CPT/HCPCS: 71010; 76937; 80048; 80053; 80061; 82550; 82810; 83605; 83880; 84484; 85002; 85007; 85025; 85027; 85610; 85730; 87040; 92920; 93005; 93306; 93460; 93571; 94002; 94640; 94664; 96365; 96375; C1725; C1769; C1887; C1893; J0153; J0456; J0696; J1644; J1940; J2920; J3246; J7050; Q9967